=== PATIENT | female | born 1965 | race Caucasian/White ===

== ENCOUNTER → 2023-07-09 | Emergency (ER) | payer SELFPAY ==
[~2023-07-09] MED LIST: FAMOTIDINE 20 MG/2 ML VIAL IV ONE; KETOROLAC 30 MG/ML INJ ONE; ONDANSETRON 4 MG/2 ML VIAL ONE
--- OUTSIDE RECORDS SUMMARY | 2023-07-09 23:12 | XMS REPORT | Continuity of Care Document ---
Author Name Unknown Address [address] [facility] [address] [id number] [facility] Address [address] [facility] 1 [address] [place] [address] Care Team Providers Care Industrial Sales Engineer Name Role Phone Unavailable Unavailable Unavailable Payers Payer Name Policy Type Policy Number Effective Date Expirati on Date Source Self Pay P [id number] 2020 00:00:00 Allergies, Adverse Reactions, Alerts Allergy Name Allergy Type Status Severity Reaction(s) Onset Date Inactive Date Treating Clinician Comments Source morphine DA Active SV 07-15 00:00: 00 [facility] hydrocod one DA Active U 07-15 00:00: 00 [facility] No Known Allergie s DA Active U 07-14 00:00: 00 [facility] Encounters Start Date/Time End Date/Time Encounter Type Admission Type Attending Clinicians Care Facility Care Department Encounter ID Source 2021 05:05:58 Outpatient [facility] [id number] [facility] 2021-04-26 09:44:29 Outpatient [facility] [id number] [facility] 2019-08-01 17:27:00 2019-08-01 17:27:00 Emergency [id number] Results Test Description Test Time Test Comments Results Resul t Comments Source - CT HEAD/BRAIN W/O CONT 2018-07-27 20:35:00 FAX: Rocio Enriquez MD [phone] [place]: St: [facility] Name: FAM VALLECILLO [facility] : 1965 Age/S: 52/F [address] [facility] Unit: [id number] Loc: [place], [place]: [place] [id number] Acct: [id number] Dis Date: Status: [facility] ER PHONE #: [phone] Exam Date: 07/27/20182014 FAX #: [phone] Reason: HEADACHE EXAMS: CPT CODE: [id number] CT HEAD/BRAIN W/O CONT 28385 CT SCAN OF THE HEAD WITHOUT CONTRAST Location: N13 CLINICAL HISTORY: Headache R 51 TECHNIQUE: Helical CT was performed from the skull base to the vertex without IV contrast using 5mm slice thicknesses. Exam was performed within 24 hours of the patient's arrival to the facility. Coronal and sagittal images were reconstructed. Exam performed without IV contrast has limited sensitivity for detection of soft tissue mass or inflammation. This exam was performed according to our departmental dose optimization program, which includes automated exposure control, adjustment of the mA and/ or KV according to patient size and/or use of iterative reconstruction technique. DLP 850 mGy*cm FINDINGS: The visualized sinuses are clear. The visualized bony structures are normal. There is no evidence of epidural, subdural, or intraparenchymal hematoma. There is mild hypodensity in the deep white matter consistent with mild microvascular white matter change. There is no evidence of mass, mass effect, fluid collection, hemorrhage, or evolving infarction. IMPRESSION: No acute findings. Mild microvascular white matter change. at 2035 Reported and signed by: Lacey Triana M.D. CC: Rocio Enriquez MD Technologist: FREDDY DALEY Trnscrd Dt/Tm: 07/27/2018 (2034) Kadie Orig Print D/T: S: 07/27/2018 (2037 PAGE 1 Signed Report - CT ABD PELVIS W/CONT 2018-07-21 21:04:00 FAX: Flo Looney MD [phone] [place]: St: DEP Name: FAM VALLECILLO [facility] : 1965 Age/S: 52/F [address] [facility] Unit: [id number] Loc: [place], [place]: [place] [id number] Acct: [id number] Dis Date: Status: [facility] ER PHONE #: [phone] Exam Date: 07/21/20182043 FAX #: [phone] Reason: upper abd pain EXAMS: CPT CODE: [id number] CT ABD PELVIS W/CONT 96792 Exam: CT abdomen and pelvis with contrast. Location: D4. History: upper abd pain Technique: Enhanced spiral slices were taken from the domes of the diaphragm, through the pubic symphysis. Coronal reformations were performed. 100 cc of Isovue-300 were used. One or more of the following dose reduction techniques were used: Automated exposure control, adjustment of the mA and/or kV according to patient size, and/or utilization of iterative reconstruction technique. Findings: The liver is of normal, homogeneous density. No mass is seen. The intra-and extrahepatic biliary tree is normal. The hepatic and portal veins are patent. The gallbladder is unremarkable. No pericholecystic fluid or wall thickening is present. The pancreas is normal. The pancreatic duct is normal in caliber. The spleen and adrenal glands are normal in size and shape. The kidneys are unremarkable. No nephrolithiasis, perinephric fluid collections or hydronephrosis is seen. The large and small intestine are normal in caliber. The appendix is nonvisualized. No inflammatory change is identified. No lymphadenopathy or free fluid is found in the abdomen or the pelvis. The uterus has been removed. The pelvic structures are otherwise unremarkable. The lung bases are clear. No incidental findings are noted. Impression: 1. No acute abdominal findings. 2. Status post hysterectomy. 3. Otherwise unremarkable exam. PAGE 1 Signed Report (CONTINUED) FAX: Flo Looney MD [phone] [place]: St: DEP Name: FAM VALLECILLO [facility] : 1965 Age/S: 52/F [address] [facility] Unit: [id number] Loc: [place], [place]: [place] [id number] Acct: [id number] Dis Date: Status: DEP ER PHONE #: [phone] Exam Date: 07/21/20182043 FAX #: [phone] Reason: upper abd pain EXAMS: CPT CODE: [id number] CT ABD PELVIS W/CONT 74941 (Continued) at 210 Reported and signed by: Prashant Kelley M.D. CC: Flo Looney MD Technologist: VANDA TAYLOR Trnscrd Dt/Tm: 07/21/2018 (2103) MarilynFC Orig Print D/T: S: 07/21/2018 (2106 PAGE 2 Signed Report - XR CHEST 1 V 2018-07-21 19:33:00 FAX: Flo Looney MD [phone] [place]: St: DEP Name: FAM VALLECILLO [facility] : 1965 Age/S: 52/F [address] Unit #: [id number] Loc: [place], [place]: [place] [id number] Acct: [id number] Dis Date: Status: [facility] ER PHONE #: [phone] Exam Date: 07/21/20181905 FAX #: [phone] Reason: Abdominal Pain EXAMS: CPT CODE: [id number] XR CHEST 1 V 82276 R16 EXAM: - XR CHEST 1 V HISTORY: Abdominal Pain COMPARISON: None FINDINGS: The lungs are clear. No pleural effusion or pneumothorax. The cardiac silhouette is within normal limits. No acute osseous abnormalities. IMPRESSION: No acute cardiopulmonary disease. at 1933 Reported and signed by: Ishmael Benson M.D. CC: Flo Looney MD Technologist: MARIELENA SAHA Trnscrd Date/Time/By: 07/21/2018 (1932) : By: [email or web address] PAGE 1 Signed Report FAX: Flo Looney MD [phone] [place]: St: [facility] Name: FAM VALLECILLO [facility] : 1965 Age/S: 52/F [address] [employer] Unit #: [id number] Loc: [place], [place]: [place] [id number] Acct: [id number] Dis Date: Status: [facility] ER PHONE #: [phone] Exam Date: 07/21/20181905 FAX #: [phone] Reason: Abdominal Pain EXAMS: CPT CODE: [id number] XR CHEST 1 V 49586 (Continued) Orig Print D/T: S: 07/21/2018 (193) PAGE 2 Signed Report
[2023-07-09 23:42] LABS: Absolute Lymphocytes (CBC) 2.3 K/uL (0.7-4.9); Hematocrit 40.3 % (36.0-45.0); Lymphocytes % 22.8 % (15.3-44.8); MCV 90.2 fL (80-100); MPV 7.5 fL (7.6-11.3); Platelets 400 thou/uL (152-406); RBC Red Blood Cell Count 4.47 M/uL (3.86-4.86)
[2023-07-09 23:48] LABS: Specific Gravity 1.023 (1.005-1.030); Urine Bacteria None Seen /HPF (<20); Urine Bilirubin NEGATIVE (Negative); Urine Blood Negative (Negative); Urine Clarity Extremely Turbid (Clear); Urine Color Light-Yellow (Yellow); Urine Glucose NEGATIVE (Negative); Urine Mucus Slight /HPF (None Seen); Urine Protein NEGATIVE (Negative); Urine Urobilinogen 1+ (Normal); Urine pH 6.5 (5.0-7.0)
[2023-07-09 23:58] LABS: Albumin 3.2 g/dL (3.4-5.0); Bilirubin Total 0.5 mg/dL (0.2-1.0); Potassium 3.3 mEq/L (3.5-5.1)
[2023-07-10 00:36] LABS: SARS-CoV-2 Antigen Rapid Res Negative (Negative)
--- NOTE | 2023-07-10 02:20 | EDPHYS ---
Physician Documentation [facility] Name: Chula Pierre Age: 57 yrs Sex: Female : 1965 Arrival Date: 07/09/2023 Time: 23:07 Bed 8 Private MD: ED Physician Pedro Pablo Haynes HPI: 07/09 23:55 This 57 yrs old Female presents to ER via Ambulatory with complaints of Vomiting. ec2 23:55 Patient arrives today for evaluation of abdominal cramping with associated nausea and ec2 vomiting. Patient reports that she has been having several days of symptoms. Patient reports that she has had decreased p.o. intake. Patient reports no cough and cold symptoms, no urinary complaints. Patient reports no previous abdominal surgeries and no major medical problems.. Historical: - Allergies: 23:37 No Known Allergies; km8 - Home Meds: 23:37 None [Active]; km8 - PMHx: 23:37 None; km8 - PSHx: 23:37 None; km8 - Immunization history:: Client reports receiving the 2nd dose of the Covid vaccine, Flu vaccine status is unknown. - Social history:: Smoking status: Patient reports the use of cigarette tobacco products, smokes one-half pack cigarettes per day, Patient/guardian denies using alcohol, street drugs. ROS: 23:55 Constitutional: as per hpi ec2 Exam: 23:55 Constitutional: GEN: NAD Head: atraumatic Eyes: EOMI Ears: External ears are ec2 normal. CV: regular rate LUNGS: no respiratory distress ABD: non-distended, soft, nontender, no guarding, nonrigid SKIN: no evidence of rashes MSK: no evidence of trauma NEURO: moves all extremities equally Vital Signs: 23:22 BP 121 / 96; Pulse 73; Resp 16; Temp 97.5(IR); Pulse Ox 97% on R/A; Weight 54.88 kg km8 (R); Height 5 ft. 2 in. (R); Pain 10/10; 07/10 00:49 BP 133 / 91; Pulse 76; Resp 18 S; Pulse Ox 99% on R/A; ha1 01:00 BP 135 / 99; Pulse 70; Resp 16; Pulse Ox 98% on R/A; km8 01:30 BP 146 / 101; Pulse 77; Resp 17 S; Pulse Ox 98% on R/A; ha1 07/09 23:22 Body Mass Index 22.13 (54.88 kg, 157.48 cm) 8 07/09 23:22 Pain Scale: Adult km8 Apurva Coma Score: 07/09 23:39 Eye Response: spontaneous(4). Motor Response: obeys commands(6). Verbal Response: km8 oriented(5). Total: 15. MDM: 23:19 Patient medically screened. ec2 23:55 Data reviewed: vital signs, nurses notes. ED course: Patient arrives today due to ec2 concern for abdominal cramping with associated nausea and vomiting. Examination remarkable for well-appearing nontoxic individual with reassuring vital signs and reassuring abdominal examination. Will obtain lab work, treat the patient's symptoms and obtain a CT image. Currently considered process such as gastroenteritis, UTI, intra-abdominal infection.. 07/10 00:10 ED course: Metabolic profile with slight hypokalemia noted, lipase within normal ec2 ranges. . 01:58 ED course: Radiology report of the CT abdomen pelvis shows no acute intra-abdominal ec2 pathology. Will start the patient on Pepcid and have her follow-up with her primary care doctor. I instructed her she also needs to follow-up with GI. Return precautions given.. 07/09 23:21 Order name: CBC with Diff; Complete Time: 23:54 ec2 07/09 23:21 Order name: CMP; Complete Time: 00:10 ec2 07/09 23:21 Order name: Lipase; Complete Time: 00:10 ec2 07/09 23:21 Order name: Urinalysis w/ reflexes; Complete Time: 23:54 ec2 07/09 23:56 Order name: SARS RAPID; Complete Time: 00:46 ec2 07/09 23:56 Order name: Influenza Screen (a \T\ B); Complete Time: 00:46 ec2 07/09 23:22 Order name: CT Abd/Pelvis - IV Contrast Only ec2 07/09 23:21 Order name: IV Saline Lock; Complete Time: 23:40 ec2 07/09 23:21 Order name: Labs collected and sent; Complete Time: 23:40 ec2 Administered Medications: 07/09 23:32 Drug: Ketorolac IVP 15 mg IVP once Route: IVP; Site: right antecubital; 1 07/10 00:22 Follow up: Response: No adverse reaction [facility] 07/09 23:35 Drug: Ondansetron IVP 4 mg IVP once; over 2 minutes Route: IVP; Site: right antecubital;1 07/10 00:00 Follow up: Response: No adverse reaction; Marked relief of symptoms [facility] 00:22 Follow up: Response: No adverse reaction [facility] 07/09 23:44 Drug: NS 0.9% IV 1000 ml IV at 1 bolus Per protocol; 1000 mL bolus Route: IV; Rate: 1 km8 bolus; Site: right antecubital; 07/10 02:45 Follow up: Response: No adverse reaction; IV Status: Completed infusion; IV Intake: ha1 1000ml 00:22 Drug: Famotidine IVP 20 mg IVP once; dilute with 10 mL 0.9% NaCl; give over 2 minutes km8 Route: IVP; Site: right antecubital; 01:00 Follow up: Response: No adverse reaction; Nausea is decreased [facility] Disposition Summary: 07/10/23 02:19 Discharge Ordered Notes: Location: Home ec2 Condition: Stable ec2 Diagnosis - Upper abdominal pain, unspecified ec2 Followup: ec2 - With: Private Physician - When: - Reason: Recheck today's complaints Discharge Instructions: - Discharge Summary Sheet ec2 - Abdominal Pain, Adult ec2 Forms: - Medication Reconciliation Form ec2 - Thank You Letter ec2 - Antibiotic Education ec2 - Prescription Opioid Use ec2 - Patient Portal Instructions ec2 - Leadership Thank You Letter ec2 Prescriptions: - Pepcid 20 mg Oral Tablet - take 1 tablet ORAL route once daily; 20 tablet; Refills: 0, Product Selection ec2 Permitted Signatures: Dispatcher [employer] Jazmyn Dueñas RN RN 1 Pedro Pablo Haynes MD MD ec2 Kristina Zaidi RN RN 8
--- NOTE | 2023-07-10 02:20 | ER ---
Nurse's Notes [facility] Name: Chula Pierre Age: 57 yrs Sex: Female : 1965 Arrival Date: 07/09/2023 Time: 23:07 Bed 8 Private MD: Diagnosis: Upper abdominal pain, unspecified Presentation: 07/09 23:22 Chief complaint: Patient states: vomiting for 5 days; denies diarrhea or fever. km8 Coronavirus screen: Client denies travel out of the [place] in the last 14 days. Ebola Screen: No symptoms or risks identified at this time. Initial Sepsis Screen: Does the patient meet any 2 criteria? No. Patient's initial sepsis screen is negative. Does the patient have a suspected source of infection? No. Patient's initial sepsis screen is negative. Risk Assessment: Do you want to hurt yourself or someone else? Patient reports no desire to harm self or others. Onset of symptoms was July 05, 2023. 23:22 Method Of Arrival: Ambulatory [facility] 23:22 Acuity: YASMANI 3 km8 Triage Assessment: 23:22 General: Appears in no apparent distress. comfortable, Behavior is calm, cooperative, km8 appropriate for age. Pain: Complains of pain in abdomen Pain currently is 10 out of 10 on a pain scale. Also complains of nausea. 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 Neuro: Level of Consciousness is awake, alert, obeys commands, Oriented to person, place, time, situation. Cardiovascular: Denies chest pain, shortness of breath, Capillary refill < 3 seconds Patient's skin is warm and dry. Respiratory: Airway is patent Respiratory effort is even, unlabored, Respiratory pattern is regular, symmetrical. GI: Reports lower abdominal pain, upper abdominal pain, constipation, cramping, nausea, vomiting. : No signs and/or symptoms were reported regarding the genitourinary system. Derm: Skin is intact, Skin is dry, Skin is pink, warm \T\ dry. normal, Skin temperature is warm. Musculoskeletal: No signs and/or symptoms reported regarding the musculoskeletal system. Circulation, motion, and sensation intact. Range of motion: intact in all extremities. Historical: - Allergies: 23:37 No Known Allergies; km8 - Home Meds: 23:37 None [Active]; km8 - PMHx: 23:37 None; km8 - PSHx: 23:37 None; km8 - Immunization history:: Client reports receiving the 2nd dose of the Covid vaccine, Flu vaccine status is unknown. - Social history:: Smoking status: Patient reports the use of cigarette tobacco products, smokes one-half pack cigarettes per day, Patient/guardian denies using alcohol, street drugs. Screenin:39 [facility] ED Fall Risk Assessment (Adult) History of falling in the last 3 months, km8 including since admission No falls in past 3 months (0 pts) Confusion or Disorientation No (0 pts) Intoxicated or Sedated No (0 pts) Impaired Gait No (0 pts) Mobility Assist Device Used No (0 pt) Altered Elimination No (0 pt) Score/Fall Risk Level 0 - 2 = Low Risk Oriented to surroundings, Maintained a safe environment, Educated pt \T\ family on fall prevention, incl call for assistance when getting out of bed, Assessed \T\ reinforced patient's understanding of fall precautions. Abuse screen: Denies threats or abuse. Denies injuries from another. Nutritional screening: No deficits noted. Tuberculosis screening: No symptoms or risk factors identified. Assessment: 23:39 General: see triage assessment/notes. GI: Reports lower abdominal pain, upper abdominal km8 pain, nausea. 07/10 00:40 Reassessment: Patient appears in no apparent distress at this time. No changes from km8 previously documented assessment. Patient and/or family updated on plan of care and expected duration. Pain level reassessed. Patient is alert, oriented x 3, equal unlabored respirations, skin warm/dry/pink. 01:30 Reassessment: Patient and/or family updated on plan of care and expected duration. Pain ha1 level reassessed. Patient is alert, oriented x 3, equal unlabored respirations, skin warm/dry/pink. Patient states feeling better. Patient states symptoms have improved. Vital Signs: 07/09 23:22 BP 121 / 96; Pulse 73; Resp 16; Temp 97.5(IR); Pulse Ox 97% on R/A; Weight 54.88 kg km8 (R); Height 5 ft. 2 in. (R); Pain 10/10; 07/10 00:49 BP 133 / 91; Pulse 76; Resp 18 S; Pulse Ox 99% on R/A; ha1 01:00 BP 135 / 99; Pulse 70; Resp 16; Pulse Ox 98% on R/A; km8 01:30 BP 146 / 101; Pulse 77; Resp 17 S; Pulse Ox 98% on R/A; ha1 07/09 23:22 Body Mass Index 22.13 (54.88 kg, 157.48 cm) [facility] 07/09 23:22 Pain Scale: Adult km8 Apurva Coma Score: 07/09 23:39 Eye Response: spontaneous(4). Motor Response: obeys commands(6). Verbal Response: km8 oriented(5). Total: 15. ED Course: 23:10 Patient arrived in ED. ag3 23:14 Pedro Pablo Haynes MD is Attending Physician. ec2 23:22 Arm band placed on right wrist. km8 23:30 No provider procedures requiring assistance completed. Inserted saline lock: 20 gauge km8 in right antecubital area, using aseptic technique. Blood collected. Patient maintains SpO2 saturation greater than 95% on room air. 23:37 Triage completed. km8 23:39 Patient has correct armband on for positive identification. Bed in low position. Call km8 light in reach. Side rails up X 1. Pulse ox on. NIBP on. Door closed. Warm blanket given. 07/10 00:37 CT Abd/Pelvis - IV Contrast Only In Process Unspecified. EDMS 02:47 Provided Education on: d/c teaching. 8 02:48 IV discontinued, intact, bleeding controlled, No redness/swelling at site. Pressure km8 dressing applied. Administered Medications: 07/09 23:32 Drug: Ketorolac IVP 15 mg IVP once Route: IVP; Site: right antecubital; [facility] 07/10 00:22 Follow up: Response: No adverse reaction [facility] 07/09 23:35 Drug: Ondansetron IVP 4 mg IVP once; over 2 minutes Route: IVP; Site: right antecubital;[facility] 07/10 00:00 Follow up: Response: No adverse reaction; Marked relief of symptoms 00:22 Follow up: Response: No adverse reaction [facility] 07/09 23:44 Drug: NS 0.9% IV 1000 ml IV at 1 bolus Per protocol; 1000 mL bolus Route: IV; Rate: 1 km8 bolus; Site: right antecubital; 07/10 02:45 Follow up: Response: No adverse reaction; IV Status: Completed infusion; IV Intake: ha1 1000ml 00:22 Drug: Famotidine IVP 20 mg IVP once; dilute with 10 mL 0.9% NaCl; give over 2 minutes km8 Route: IVP; Site: right antecubital; 01:00 Follow up: Response: No adverse reaction; Nausea is decreased ha1 Medication: 07/09 23:39 VIS not applicable for this client. km8 Intake: 07/10 02:45 IV: 1000ml; Total: 1000ml. ha1 Outcome: 02:19 Discharge ordered by . ec2 02:48 Discharged to home ambulatory, with friend, km8 02:48 Condition: good 02:48 Discharge instructions given to patient, friend, Instructed on discharge instructions, follow up and referral plans. medication usage, Demonstrated understanding of instructions, follow-up care, medications, Prescriptions given X 1, 02:48 Patient left the ED. km8 Signatures: Dispatcher [employer] EDMS Monica Temple 3 Jazmyn Gandhi RN RN ha1 Pedro Pablo Haynes MD MD ec2 Kristina Zaidi RN RN km8 Corrections: (The following items were deleted from the chart) 07/09 23:37 23:37 General: km8 km8 23:41 23:39 Inserted saline lock: 20 gauge in right antecubital area, using aseptic km8 technique. Blood collected. km8 23:41 23:39 No provider procedures requiring assistance completed. km8 km8 23:41 23:39 Patient maintains SpO2 saturation greater than 95% on room air. km8 km8
--- NOTE | 2023-07-11 12:26 | RAD REPORT ---
EXAM DESCRIPTION: CT Abdomen and Pelvis With Intravenous Contrast CLINICAL HISTORY: The patient is 57 years old and is Female; ABD PAIN TECHNIQUE: Axial computed tomography images of the abdomen and pelvis with intravenous contrast. S agittal and coronal reformatted images were created and reviewed. This CT exam was performed using one or more of the following dose reduction techniques: automated exposure control, adjustment of t he mA and/or kV according to patient size, and/or use of iterative reconstruction technique. COMPARISON: No relevant prior studies available. FINDINGS: Lung bases: Unremarkable. No mass. No consolidation. Mediastinum: Small hiatal hernia. ABDOMEN: Liver: Mild hepatomegaly. Gallbladder and bile ducts: Unremarkable. No calcified stones. No ductal dilation. Pancreas: Unremarkable. No mass. No ductal dilation. Spleen: Unremarkable. No splenomegaly. Adrenals: Unremarkable. No mass. Kidneys and ureters: Unremarkable. No solid mass. No hydronephrosis. Stomach and bowel: Sigmoid diverticulosis. Scattered colonic diverticula. No obstruction. No mucosal thickening. PELVIS: Appendix: No findings to suggest acute appendicitis. Bladder: Unremarkable. Reproductive: Uterus is not seen. ABDOMEN and PELVIS: Intraperitoneal space: Unremarkable. No free air. No significant fluid collection. Bones/joints: No acute fracture. No dislocation. Soft tissues: Unremarkable. Vasculature: Scattered atherosclerotic vascular calcifications. No abdominal aortic aneurysm. Lymph nodes: Unremarkable. No enlarged lymph nodes. IMPRESSION: No acute finding in the abdomen/pelvis. 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 The interpreting radiologist is fully responsible for the content of the report.
== END ==
LOC: ER 23:07
DX: R10.10 Upper abdominal pain, unspecified (principal); R11.2 Nausea with vomiting, unspecified; F17.210 Nicotine dependence, cigarettes, uncomplicated; Z11.52 Encounter for screening for COVID-19
CPT/HCPCS: 96361; 85025; 81001; 36415; 83690; 80053; 87804 ×2; 74177; 96375; 96374; 99285; 87811; Q9967; J2405

== ENCOUNTER → 2023-09-04 | Emergency (ER) | payer OTHER ==
[~2023-09-04] MED LIST changes: +LIDOCAINE VISCOUS 2% 10ML ORAL SOLN ONE; +MAGNES/ALUMIN/SIMET 30ML UCUP ONE; +NA CHLORIDE 0.9% 1,000 ML ONE; +PANTOPRAZOLE 40 MG INJ ONE
--- OUTSIDE RECORDS SUMMARY | 2023-09-04 17:13 | XMS REPORT | Continuity of Care Document ---
Author Name Unknown Address [address] [facility] [place] [address] [facility] thconnect Address [address] [facility] [address] [place] [address] Care Team Providers Care Cross Tie Turner Name Role Phone PCP, PATIENT DOES NOT HAVE A Primary Care Physic FRANCIE Saldana Attending Clinician Francie Duarte Attending Clinician [phone] ELSA MIXON Admitting Clinician Unavailable Payers Payer Name Policy Type Policy Number Effective Date Expirati on Date Source Self Pay P [id number] 2020 00:00:00 MEDICAID [facility] [id number] 2021 00:00:00 Problems Condition Name Condition Details Condition Category Status Onset Date Resolution Date Last Treatment Date Treating Clinician Comments Source Obesity (BMI 30-39.9) Obesity (BMI 30-39.9) Disease Active 02-01 00:00: 00 [facility] Cellulitis Cellulitis Disease Active 02-01 00:00: 00 [facility] Allergies, Adverse Reactions, Alerts Allergy Name Allergy Type Status Severity Reaction(s) Onset Date Inactive Date Treating Clinician Comments Source hydrocod one DA Active U - 00:00: 00 [facility] morphine DA Active SV 07-15 00:00: 00 [facility] hydrocod one DA Active U 07-15 00:00: 00 [facility] No Known Allergie s DA Active U 07-14 00:00: 00 [facility] HYDROCOD ONE DRUG INGREDI Active ITCHING 2017-07 00:00: 00 [facility] Hydrocod one Propensi ty to adverse reaction s Active Itching 2017-07 00:00: 00 [facility] Social History Social Habit Start Date Stop Date Quantity Comments [facility] of tobacco use Cigarette Smoker [facility] Alcohol intake 2023-07-07 00:00:00 2023-07-07 00:00:00 Current non-drinker of alcohol (finding) [facility] History of Social function 2023-07-07 00:00:00 2023-07-07 00:00:00 [facility] Cigarettes smoked current (pack per day) - Reported 2017-02-01 00:00:00 2017-02-01 00:00:00 [facility] Cigarette pack-years 2017-02-01 00:00:00 2017-02-01 00:00:00 [facility] Tobacco use and exposure 2017-02-01 00:00:00 2017-02-01 00:00:00 Smokeless tobacco non-user [facility] Sex Assigned At 1965 00:00:00 1965 00:00:00 [facility] Smoking Status Start Date Stop Date Source Smokes tobacco daily 2017-02-01 00:00:00 [facility] Medications Ordered Medication Name Filled Medication Name Start Date Stop Date Current Medication? Ordering Clinician Indication Dosage Frequency Signature (SIG) Comments Components Source iopamidol (ISOVUE 370-500 mL) injection 100 mL 2022-07 10:45: 00 07-07 10:45 :00 No [id number] 100mL 100 mL, Intravenou s, ONCE, 1 dose, On Airam 07/07/23 at 0445, Routine [facility] ondansetron (ZOFRAN (PF)) injection 4 mg 2022-07 09:45: 00 07-07 10:10 :00 No 4mg 4 mg, Slow IV Push, ONCE, 1 dose, On Airam 07/07/23 at 0345, [facility] NaCl 0.9% (NS) bolus infusion 1,000 mL 2022-07 08:45: 00 07-07 10:44 :00 No 1000mL at 999 mL/hr, 1,000 mL, IV Infusion, ONCE, 1 dose, On Airam 07/07/23 at 0245, [facility] ondansetron (ZOFRAN (PF)) injection 4 mg 2022-07 08:45: 00 07-07 08:18 :00 No 4mg 4 mg, Slow IV Push, ONCE, 1 dose, On Airam 07/07/23 at 0245, [facility] pantoprazol e (PROTONIX) 40 mg EC tablet 2022-07 00:00: 00 Yes [id number] 40mg Take 1 tablet by mouth in the morning. [facility] dicyclomine 20 mg tablet 2022-07 00:00: 00 Yes [id number] 20mg Take 1 tablet by mouth every 6 (six) hours as needed for Abdominal pain. [facility] ondansetron (ZOFRAN) 4 mg tablet 2022-07 00:00: 00 Yes [id number] 4mg Take 1 tablet by mouth every 8 (eight) hours as needed for Nausea and Vomiting (N/V). [facility] traMADOL (ULTRAM) 50 mg tablet 08-20 00:00: 00 Yes [id number] 50mg Take 1 tablet by mouth every 6 (six) hours as needed for Pain (scale 7-10). [facility] butalbital- acetaminoph en-caff 50-325-40 mg tablet 02-08 00:00: 00 Yes 1{tbl} Take 1 tablet by mouth every 6 (six) hours as needed (GERBER). [facility] acetaminoph en 325 mg tablet 02-08 00:00: 00 Yes 650mg Take 2 tablets by mouth every 6 (six) hours as needed for Pain (scale 1-3). [facility] simethicone 80 mg chewable tablet 02-08 00:00: 00 Yes 80mg Take 1 tablet by mouth after meals and at bedtime. [facility] pantoprazol e 20 mg EC tablet 02-08 00:00: 00 Yes 20mg Take 1 tablet by mouth daily. [facility] acyclovir 200 mg capsule 01-28 00:00: 00 Yes 800mg Take 4 capsules by mouth 5 (five) times daily. [facility] Vital Signs Vital Name Observation Time Observation Value Comments S ource Heart rate 2023-07-07 10:30:00 79 /min [facility] Oxygen saturation in Arterial blood by Pulse oximetry 2023-07-07 10:30:00 99 /min [facility] Systolic blood pressure 2023-07-07 10:10:00 117 mm[Hg] [facility] Diastolic blood pressure 2023-07-07 10:10:00 89 mm[Hg] [facility] Respiratory rate 2023-07-07 10:10:00 20 /min [facility] Body temperature 2023-07-07 07:47:00 37.28 Tami [facility] Body height 2023-07-07 07:47:00 157.5 cm [facility] Body weight 2023-07-07 07:47:00 54.885 kg [facility] BMI 2023-07-07 07:47:00 22.13 kg/m2 [facility] Procedures Procedure Date / Time Performed Performing Clinicia n Source CT ABDOMEN PELVIS W CONTRAST 2023-07-07 09:59:51 Elsa Mixon [facility] LIPASE 2023-07-07 08:18:00 Francie Mcadams [facility] TROPONIN I 2023-07-07 08:18:00 Elsa Mixon [facility] COMP. METABOLIC PANEL ([id number]) 2023-07-07 08:18:00 Celestine [facility] CBC WITH DIFF 2023-07-07 08:18:00 Celestine [facility] NOTICE OF PRIVACY PRACTICES 2023-07-07 07:36:51 Doctor Unassigned, [place] [facility] CONSENT/REFUSAL FOR DIAGNOSIS AND TREATMENT 2023-07-07 07:27:55 Doctor Unassigned, [place] [facility] Encounters Start Date/Time End Date/Time Encounter Type Admission Type Attending [facility] Care Facility Care Department Encounter ID Source 2021 05:05:[address] [facility] [id number] [facility] 2021-04-26 09:44:[address] [facility] [id number] [facility] 2023-07-07 02:02:00 2023-07-07 05:12:00 Emergency [facility] ERT [id number] [facility] 2023-07-07 02:02:00 2023-07-07 05:12:00 Emergency [place], [facility] [id number] 350.1.13.10 4.2.7.2.[id number] [facility] Results Test Description Test Time Test Comments Results Resul t Comments Source CT ABDOMEN PELVIS W CONTRAST 2023-06-11 8 10:22:44 ORDERING PHYSICIAN: ELSA MIXON CLINICAL HISTORY: Abdominal pain, acute COMPARISON: None available. TECHNIQUE: Helical CT images of the abdomen and pelvis obtained with IVcontrast. CT scan performed according to ALARA (As low as reasonablyachievabl e) principles. FINDINGS: Heart size is normal. Liver and spleen are unremarkable. The gallbladder isunremarkable. The pancreas, and kidneys are unremarkable. There is nohydronephrosis. Adrenal gland thickening is seen bilaterally. Bladder isunremarkable. Fat-containing left inguinal hernia is identified. Patientstatus post hysterectomy. Diverticula are identified in the colon. There isno CT evidence for diverticulitis. Appendix is not identified. No secondarysigns of appendicitis. The bones are unremarkable[facility]-07 08:48:06* Test Item Value Reference Range Interpretation Comme nts NA (test code = 6635713523) 139 mmol/L 135-145 K (test code = 5461140148) 4.0 mmol/L 3.5-5.0 CL (test code = 0896884624) 105 mmol/L 98-108 CO2 TOTAL (test code = 0925444160) 25 mmol/L 23-31 AGAP (test code = 9164975242) 9 2-16 BUN (test code = 0580433359) 16 mg/dL 7-23 GLUCOSE (test code = 6001307995) 128 mg/dL 70-110 H CREATININE (test code = 8617023490) 0.60 mg/dL 0.50-1.04 TOTAL BILI (test code = 9082084143) 1.0 mg/dL 0.1-1.1 CALCIUM (test code = 9725651992) 9.5 mg/dL 8.6-10.6 T PROTEIN (test code = 2058265872) 8.3 g/dL 6.3-8.2 H ALBUMIN (test code = 4823771276) 4.7 g/dL 3.5-5.0 ALK PHOS (test code = 9051079862) 99 U/L 34-122 ALTv (test code = 1742-6) 19 U/L 5-35 AST(SGOT) (test code = 6544652139) 40 U/L 13-40 eGFR (test code = 95949-4) 104.8 mL/min/1.73m2 CKD-EPI eGFR (2020). Assuming creatinine has been stable day-to-day for at least three months, the eGFR indicates Category G1 (>= 90 mL/min/1.73 m2) Lab Interpretation (test code = 05316-3) [facility]47:46* Test Item Value Reference Range Interpretation Comme nts LIPASE (test code = 7995766168) 58 U/L 0-220 Lab Interpretation (test cod e = 03873-3) Normal [facility] WITH [id number] 08:33:27* Test Item Value Reference Range Interpretation Comme nts WBC (test code = 6690-2) 9.95 See_Comment [Automated messa ge] The system which generated this result transmitted reference range: 4.30 - 11.10 10*3/?L. The reference range was not used to interpret this result as normal/abnormal. RBC (test code = 789-8) 5.20 See_Comment [Automated messa ge] The system which generated this result transmitted reference range: 3.93 - 5.25 10*6/?L. The reference range was not used to interpret this result as normal/abnormal. HGB (test code = 718-7) 16.0 g/dL 11.6-15.0 H HCT (test code = 4544-3) 47.4 % 35.7-45.2 H MCV (test code = 787-2) 91.2 fL 80.6-95.5 MCH (test code = 785-6) 30.8 pg 25.9-32.8 MCHC (test code = 786-4) 33.8 g/dL 31.6-35.1 RDW-SD (test code = 78225-2) 44.3 fL 39.0-49.9 RDW-CV (test code = 788-0) 13.2 % 12.0-15.5 PLT (test code = 777-3) 432 See_Comment H [Automated messa ge] The system which generated this result transmitted reference range: 166 - 358 10*3/?L. The reference range was not used to interpret this result as normal/abnormal. MPV (test code = 81398-8) 9.6 fL 9.5-12.9 NRBC/100 WBC (test code = 1418140256) 0.0 See_Comment [Automated [employer] ssage] The system which generated this result transmitted reference range: 0.0 - 10.0 /100 WBCs. The reference range was not used to interpret this result as normal/abnormal. NRBC x10^3 (test code = 2950321019) See_Comment [Automated messa ge] The system which generated this result transmitted reference range: 10*3/?L. The reference range was not used to interpret this result as normal/abnormal. GRAN MAT (NEUT) % (test code = 770-8) 68.2 % IMM GRAN % (test code = 1545322729) 0.20 % LYMPH % (test code = 736-9) 23.7 % MONO % (test code = 5905-5) 6.8 % EOS % (test code = 713-8) 0.5 % BASO % (test code = 706-2) 0.6 % GRAN MAT x10^3(ANC) (test code = 4149213640) 6.78 10*3/uL 1.88-7.09 IMM GRAN x10^3 (test code = 7707649928) 0.00-0.06 LYMPH x10^3 (test code = 731-0) 2.36 10*3/uL 1.32-3.29 MONO x10^3 (test code = 742-7) 0.68 10*3/uL 0.33-0.92 EOS x10^3 (test code = 711-2) 0.05 10*3/uL 0.03-0.39 BASO x10^3 (test code = 704-7) 0.06 10*3/uL 0.01-0.07 Lab Interpretation (test code = 00749-2) Abnormal [facility]- CT HEAD/BRAIN W/O [id number] 20:35:00 FAX: Rocio Enriquez MD [phone] [place]: St: DEP Name: FAM VALLECILLO [facility] : 1965 Age/S: 52/F [address] Unit: [id number] Loc: [place], [place]: [place] [id number] Acct: [id number] Dis Date: Status: [facility] ER PHONE #: [phone] Exam Date: 07/27/20182014 FAX #: [phone] Reason: HEADACHE EXAMS: CPT CODE: [id number] CT HEAD/BRAIN W/O CONT 37934 CT SCAN OF THEHEAD WITHOUT CONTRAST Location: N13 CLINICAL HISTORY: Headache [...] the mA and/ or KV according to patientsize and/or use of iterative reconstruction technique. DLP 850 mGy*cm FINDINGS: The visualized sinuses are clear. The visualized bony structures are normal. There is no evidence of epidural, subdural, or intraparenchymal hematoma. There is mild hypodensity in the deep white matter consistent with m ild microvascular white matter change. There is no evidence of mass, mass effect, fluid collection,hemorrhage, or evolving infarction. IMPRESSION: No acute findings. Mild microvascular white matter change. at 2034 Reported and signed by: Lacey Triana M.D. CC: Rocio Enriquez MD Technologist: FREDDY DALEY Trnscrd Dt/Tm: 07/27/2018 (2034) AuraT Orig Print D/T: S: 07/27/2018 (2037 PAGE 1 Signed Report- CT HEAD/BRAIN W/O [id number] 20:35:00FAX: Rocio Enriquez MD [phone] [place]: St: REG Name: FAM VALLECILLO [facility] : 1965 Age/S:52/F [address] [facility] [facility] Unit: [id number] Loc: [place] [employer] Phys: Rocio Enriquez WMD [id number] Acct: [id number] Dis Date: Status: REG ER PHONE #: [phone] Exam Date: 07/27/20182014 FAX #: [phone] Reason: HEADACHE EXAMS: CPT CODE: [id number] CT HEAD/BRAIN W/O CONT 66923 CTSCAN OF THE HEAD WITHOUT CONTRAST Location: N13 CLINICAL HISTORY: Headache R 51 TECHNIQUE: HelicalCT was performed from the skull base to the vertex without IV contrast using 5mm slice thicknesses.Exam was performed within 24 hours of the [...] evolving infarction. IMPRESSION: No acute findings. Mild microvascularwhite matter change. at 2034 Reported and signed by: Lacey Triana M.D. CC: Rocio Enriquez MD Technologist: FREDDY DALEY Trnscrd Dt/Tm: 07/27/2018 (2034) Kadie Orig Print D/T: S: 07/27/2018 (2037 PAGE 1 Signed ReportCOMPREHENSIVE METABOLIC [id number] 20:29:00* Test Item Value Reference Range Interpretation Comme nts SODIUM (test code = NA) 142 mmol/l 134.0-147.0 N POTASSIUM (test code = K) 4.3 mmol/L 3.6-5.2 N CHLORIDE (test code = CL) 105 mmol/l 98.0-107.0 N CARBON DIOXIDE (test code = CO2) 29.1 mmol/l 21.0-33.0 N ANION GAP (test code = GAP) 12.2 0-20 N GLUCOSE (test code = GLU) 101 mg/dl 70.0-110.0 N BLOOD UREA NITROGEN (test co de = BUN) 21 mg/dl 7.0-18.0 H CREATININE (test code = CREAT) 0.95 mg/dL 0.60-1.30 N GFR NON BLACK (test code = GFRNONBLACK) 65 mL/min 90-95 L GFR BLACK (test code = GFRBLACK) 79 mL/min 109-115 L TOTAL PROTEIN (test code = PROT) 7.5 gm/dL 6.4-8.2 N ALBUMIN (test code = ALB) 3.5 gm/dl 3.2-4.7 N CALCIUM (test code = CA) 9.2 mg/dl 8.0-10.5 N BILIRUBIN TOTAL (test code = BILT) 0.1 mg/dl 0.0-1.0 N SGOT/AST (test code = AST) 17 Units/L 15.0-37.0 N SGPT/ALT (test code = ALT) 27 Units/L 12.0-78.0 N ALKALINE PHOSPHATASE TOTAL ( test code = ALKP) 112 Units/L 50.0-136.0 N PROTHROMBIN [id number] 20:27:00* Test Item Value Reference Range Interpretation Comme nts PROTHROMBIN TIME PATIENT (test code = PTP) 11.7 SECONDS 9.9-12.8 N INTERNATIONAL NORMAL RATIO (test code = INR) 1.0 0.89-1.14 N THE INR IS TO BE USED ONLY FOR MONITORING ORAL ANTICOAGULANTTHERAPY. THE FOLLOWING ARE SUGGESTED RANGES FROM THEAMERICAN COLLEGE OF CHEST PHYSICIANS:INDICATION INR VALUEPROPHYLAXIS OF VENOUS THROMBOSIS (ORTHOPEDIC SURGERY) 2.0 - 3.0PROPHYLAXIS OF VENOUS THROMBOSIS (OTHER THAN HIGH-RISK SURGERY) 2.0 - 3.0TREATMENT OF DEEP VEIN THROMBOSIS OR PULMONARY EMBOLISM 2.0 - 3.0PREVENTION OF SYSTEMIC EMBOLISM TISSUE HEART VALVES 2.0 - 3.0 ACUTE MYOCARDIAL INFARCTION (TO PREVENT SYSTEMIC EMBOLISM) 2.0 - 3.0 ACUTE MYOCARDIAL INFARCTION (TO PREVENT RECURRENT INFARCT) 2.5 - 3.0 VALVULAR HEART DISEASE 2.0 - 3.0 ATRIAL FIBRILATION 2.0 - 3.0BILEAFLET MECHANICAL VALVE IN AORTIC POSITION 2.0 - 3.0MECHANICAL PROSTHETIC VALVES (HIGH RISK) 2.5 - 3.5PRESENCE OF LUPUS ANTICOAGULANT OR ANTIPHOSPHOLIPID ANTIBODIES 2.5 - 3.5 THROMBOPLASTIN TIME [id number] 20:27:00* Test Item Value Reference Range Interpretation Comme nts THROMBOPLASTIN TIME PARTIAL (test code = PTT) 31.60 SECONDS 25.86-36.07 [facility] Therapeutic Range - APTT of 55.8-85.4 secondscorrelates with plasma heparin concentration of 0.2-0.4 u/mL New range effective - 09/05/2016 COMPREHENSIVE METABOLIC [id number] 20:22:00* Test Item Value Reference Range Interpretation Comme nts SODIUM (test code = NA) 142 mmol/l 134.0-147.0 N POTASSIUM (test code = K) 4.3 mmol/L 3.6-5.2 N CHLORIDE (test code = CL) 105 mmol/l 98.0-107.0 N CARBON DIOXIDE (test code = CO2) 29.1 mmol/l 21.0-33.0 N ANION GAP (test code = GAP) 12.2 0-20 N GLUCOSE (test code = GLU) mg/dl 70.0-110.0 BLOOD UREA NITROGEN (test co de = BUN) mg/dl 7.0-18.0 CREATININE (test code = CREAT) mg/dL 0.60-1.30 GFR NON BLACK (test code = GFRNONBLACK) mL/min 90-95 GFR BLACK (test code = GFRBLACK) mL/min 109-115 TOTAL PROTEIN (test code = PROT) gm/dL 6.4-8.2 ALBUMIN (test code = ALB) gm/dl 3.2-4.7 CALCIUM (test code = CA) mg/dl 8.0-10.5 BILIRUBIN TOTAL (test code = BILT) mg/dl 0.0-1.0 SGOT/AST (test code = AST) Units/L 15.0-37.0 SGPT/ALT (test code = ALT) Units/L 12.0-78.0 ALKALINE PHOSPHATASE TOTAL ( test code = ALKP) Units/L 50.0-136.0 CBC W/AUTO [id number] 20:14:00* Test Item Value Reference Range Interpretation Comme nts WHITE BLOOD CELL (test code = WBC) 13.4 K/mm3 4.5-11.0 H RED BLOOD CELL (test code = RBC) 4.60 M/mm3 3.80-5.20 N HEMOGLOBIN (test code = HGB) 13.0 gm/dL 12.0-16.0 N HEMATOCRIT (test code = HCT) 40.1 % 36.0-48.0 N MEAN CELL VOLUME (test code = MCV) 87.2 UM3 82.0-99.0 N MEAN CELL HGB (test code = MCH) 28.3 UUG 25.5-32.5 N MEAN CELL HGB CONCETRATION ( test code = MCHC) 32.4 gm/dL 29.0-35.5 N RED CELL DISTRIBUTION WIDTH (test code = RDW) 13.7 % 11.5-15.0 N PLATELET COUNT (test code = PLT) 519 K/mm3 150-400 H MEAN PLATELET VOLUME (test c ode = MPV) 9.2 fl 7.4-10.4 N NEUTROPHIL % (test code = NT%) 61.4 % 49.0-76.0 N LYMPHOCYTE % (test code = LY%) 29.7 % 23.0-38.0 N MONOCYTE % (test code = MO%) 6.0 % 1.0-10.0 N EOSINOPHIL % (test code = EO%) 1.7 % 1.0-5.0 N BASOPHIL % (test code = BA%) 0.8 % 0.0-1.0 N NEUTROPHIL # (test code = NT#) 8.2 K/mm3 2.4-6.3 H LYMPHOCYTE # (test code = LY#) 4.0 K/mm3 1.2-4.0 N MONOCYTE # (test code = MO#) 0.8 K/mm3 0.0-0.6 H EOSINOPHIL # (test code = EO#) 0.2 K/MM3 0.0-0.7 N BASOPHIL # (test code = BA#) 0.1 K/mm3 0.0-0.2 N - CT ABD PELVIS [id number] 21:04:00FAX: Flo Looney MD [phone] [place]: St: [facility] Name: FAM VALLECILLO [facility] : 1965 Age/S: 52/F [address] [facility] Unit: [id number] Loc: [place], [place] Phys: Flo Looney [place] [id number]: [id number] Dis Date: Status: [facility] ER PHONE #: [phone] Exam Date: 07/21/20182043 FAX #: [phone] Reason: upper abd pain EXAMS: CPT CODE: [id number] CT ABD PELVIS W/CONT 33016 Exam: CT abdomen and pelvis with contrast. Location: D4. History: upper abd pain Technique: Enhanced spiral slices were taken from the domes of the diaphragm, through the pubic symphysis. Coronal reformationswere performed. 100 cc of Isovue-300 were used. One or more of the following dose reduction techniques were used: Automated exposure control, adjustment of the mA and/or kV according to patient size,and/or utilization of iterative reconstruction technique. Findings: The liver is of normal, homogeneous density. No mass is seen. The intra-and extrahepatic biliary tree is normal. The hepatic and portal veins are patent. The gallbladder is unremarkable. No pericholecystic fluid or wall thickening is present. The pancreas is normal. The pancreatic duct is normal in caliber. The spleen and adrenalglands are normal in size and shape. The [...] Signed Report (CONTINUED) FAX: Flo Looney MD [phone] [place]: St: [facility]: [facility] 1965[facility]/S: /[address] Unit: [id number] Loc: [place], [place]: [place] [id number] Acct: [id number] Dis Date: Status: DEP ER PHONE #: [phone] Exam Date: 2043 FAX #: [phone] Reason: upper abd pain EXAMS: CPT CODE: [id number] CT ABD PELVIS W/CONT 52649 (Continued) at 2104 Reported and signed by: Prashant Kelley M.D. CC: Flo Looney MD Technologist: VANDA TAYLOR Trnscrd Dt/Tm: 07/21/2018 (2103) [email or web address] Orig Print D/T: S: 07/21/2018 (7 PAGE 2 Signed Report- XR CHEST 1 [id number] 19:33:00FAX: Flo Looney MD [phone] [place]: St: DEP Name: FAM VALLECILLO [facility] : 1965 Age/S: 52/[address] Unit #: [id number] Loc: [place], [place]: [place] [address] Acct: [id number] Dis Date: Status: [facility] ER PHONE #: [phone] Exam Date: 07/21/20181905 FAX #: [phone] Reason: Abdominal Pain EXAMS: CPT CODE: [id number] XR CHEST 1 V 91517 R16 EXAM: -XR CHEST 1 V HISTORY: Abdominal Pain COMPARISON: [...] 1 Signed Report FAX: Flo Looney MD [phone] [place]: St: [facility] Name: FAM VALLECILLO [facility] : 1965 Age/S: 52/F [address] Unit #: [id number] Loc: [place], [place]: [place] [address] Acct: [id number] Dis Date: Status: [facility] ER PHONE #: [phone] Exam Date: 07/21/20181905 FAX #: [phone] Reason: Abdominal Pain EXAMS: CPT CODE: [id number] XR CHEST 1 V 47166 (Continued) Orig Print D/T: S: 07/21/2018 (1935) PAGE 2 Signed Report Notes Date/Time Note Provider Source 2023-07-07 04:59:25 F6YdFAbosfKE9ErJZn/fitqkZH5Sg0UyoULhRVS WDKpRV0+UjYJZdswlXt39EuZn7836-72-54E81: 59:25 Pt given printed and verbal discharge instructions regarding N/V/epigastric pain, Prescriptions to pt's pharmacyPt verbalized understanding of instructions,pt encouraged to follow up with pcpAdvised to seek medical attention for new/prolonged/worsening of symptoms,No adverse reaction to meds given in ER noted upon dischargePIV d'cd, dressing to site, catheter in tact.Awake, alert oriented, resp reg unlabored, skin w/d, pt leaving in no apparent distress, 68556-0Trcknokbi department WczaAP8041-51-83H57:11:57Emergency department NoteTXT1.2.840.504602.1.13.104.2.7.2.72 7879|[id number] for patient tsyn47861-5KizdURXKMQJBAKZYmgrwpqcc C-CDA narrative [id number] R Shehadeh RN[address]XrcbEstkulstqXbuamqlzyKJUI8113568391LAB QKRIRHZKQKGPCIHOLBQ7743-66-76M21:11:571 .2.840.747988.1.72.3.15|1.2.840.978403. 1.13.104.2.7.2.727879_[id number] Laura Patiño RN [facility] 2023-07-07 01:41:19 AbCKCTgWEOz+gAF9unNyr2jzQYfoK7N+7aM5q2p EeK6z/zhO5PTuItok3++qwI3I5027-40-00D10: 41:19 Pt arrives ambulatory to ED reporting that for about 3 days she has been unable to hold anything down. She says that she has been vomiting everything she tries to drink or eat. She has become concerned so she came in to be evaled. 58362-4Nppgtkchm department Triage klfgPW1812-01-24N33:56:53[facility] Triage noteTXT1.2.840.914807.1.13.104.2.7.2.72 7879|[id number] for patient mvhb51240-5Zetolhtfe department NoteLNNARRATIVEFormatted C-CDA narrative [id number] L Williams RN[address] Tp[id number] KIZGNXDDUBRHRHZFYYJ1298-86-70L78:56:531 .2.840.133785.1.72.3.15|1.2.840.737112. 1.13.104.2.7.2.727879_[id number] Laura Flaherty RN [facility] 2018-07-27 19:40:00 [id number] ngd4O2kjSdH9gW9BvwT5SZkQ95Q+wmQSVivoAN6 Nd643931-04-14X26:40:00 [facility] ([facility]-COMM[facility]ITY HOSPITALEMERGENCY PROVIDER REPORTREPORT#:[id number] REPORT STATUS: SignedDATE:07/27/18 TIME: 1939 PATIENT: FAM VALLECILLO UNIT #: [id number]#: [id number] ROOM/BED:AGE: 52 SEX: F PCP PHYS: No Primary or Family PhysicianSERVICE AUTHOR: Rocio Enriquez MD * ALL edits or amendments must be made on the electronic/computer document * HPI-Headache GeneralConfirmed Patient YesInitial Greet Date/Time 07/27/181920 PresentationChief Complaint HeadacheHx Obtained From PatientSudden in Onset? YesOnset Occurred Today (AM)Symptom Duration Since onsetProgression since Onset UnchangedLocation GeneralizedSeverity: Onset ModerateSeverity: Current ModerateAssociated withDenies: Fever. 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 GERBER was gradual onset, gradually worsening, not worst headache of her life. Pt reports the long-term she resides at does not let her take OTC meds without first being seen by a doctor, so she was advised her to seek help in the ED for intervention. Pt states her GERBER's don't usually last this long, so she was concerned. Denies fever, chills, N/V or any other acute symptoms. Pt also states she does not have money for Tylenol or ibuprofen. Portions of this section were scribed by Kristine Hughes on 07/27/18 at 1952 Risk-Headache Risk Stratification)( Subarachnoid Hemorrhage Risk factors reviewed)( IC Mass Lesion Risk factors reviewed Portions of this section were scribed by Kristine Hughes on 07/27/18 at 1952 Review of Systems ROS StatementsAll systems rev neg except as marked. Focused Review of SystemsConstitutionalDenies: Chills, Fever, Lethargy. EyesDenies: Diplopia, Eye pain bilat, Redness bilat, Visual loss bilat. Ears/Nose/ThroatDenies: Earache bilat, Nasal congestion, Sore throat. GIDenies: Abdominal pain, Diarrhea, Nausea, Vomiting. MusculoskeletalDenies: Back pain, Extremity pain. SkinDenies: Diaphoresis, Rash. NeurologicReports: Headache. Denies: Change LOC, Dizziness, Focal weakness, Generalized weakness, Lightheaded, Syncope. PsychiatricDenies: Anxiety, Depression. Additional Review of SystemsRespiratoryDenies: Shortness of breath, Wheezing. CardiovascularDenies: Chest pain, Edema. HematologicDenies: Bleeding, Bruising. Portions of this section were scribed by Kristine Hughes on 07/27/18 at 1953 Past Medical History - AdultStated Complaint PT STATES " I HAVE A BAD HEADACHE"AllergiesCoded Allergies:hydrocodone (UNKNOWN 07/21/18) Review of Nursing Notes Rev avail, and agreePt reports no significant: Past surgical historyAdditional Medical HistoryDeafAlcohol Use Denies EtOH useSmoking status for patients 13 years old or older: Current every day smoker Portions of this section were scribed by Kristine Hughes on 07/27/18 at 1953 Physical Exam Vital SignsVital SignsFirst Documented: Result Date Time Pulse Ox 100 07/27 1918 B/P 127/74 07/27 1918 B/P Mean 91 07/27 1918 O2 Delivery Room air 07/27 1918 Temp 37.1 07/27 1918 Pulse 99 07/27 1918 Resp 18 07/27 1918 Last Documented: Result Date Time Pulse Ox 98 07/27 2254 B/P 113/61 07/27 2254 B/P Mean 78 07/27 2254 O2 Delivery Oxymizer 07/27 2254 Temp 36.8 07/27 2254 Pulse 88 07/27 2254 Resp 20 07/27 2254 Review of Vital Signs Reviewed Focused PEGeneral/Const General/Const Awake, Alert, No acute distress, Well developed, Well nourished, Cooperative, Not toxic appearingMS Head Head Atraumatic, NormocephalicEyes Eyes PERRL, EOMI, No nystagmus, No photophobia, Conjunctiva NL, Fundi NLEars/Nose/Throat Ears/Nose/Throat Airway patent, Mucous membranes moist, Pharynx NLMS Neck Neck Supple, No meningismus, Full range of motion, No swelling, Non-tenderResp/Chest Respiratory/Chest Breath sounds NL, Breath sounds = bilat, No respiratory distress, No rales, No rhonchi, No wheezingCardiovascular Cardiovascular Heart rate NL, Regular rhythm, Heart sounds NLAbdomen/GI Abdomen/GI Soft, Non-tender, No guardingSkin Skin Color NL, No rash, Warm, Dry, Intact, No swellingNeurologic Neurologic Oriented X3, Speech NL, No motor deficits, No sensory deficits, CNII - XII intact, Cerebellar NLPsychiatric Psychiatric Affect NL, Mood NL Portions of this section were scribed by Kristine Hughes on 07/27/18 at 1953 Interpretation Diagnostics Lab Results InterpretationResultsLaboratory Tests 07/27/18 2005:[Embedded Image Not Available]Laboratory Tests: 07/27 2004 Chemistry Sodium (134.0 - 147.0 mmol/l) 142 Potassium (3.6 - 5.2 mmol/L) 4.3 Chloride (98.0 - 107.0 mmol/l) 105 Carbon Dioxide (21.0 - 33.0 mmol/l) 29.1 Anion Gap (0 - 20) 12.2 BUN (7.0 - 18.0 mg/dl) 21 H Creatinine (0.60 - 1.30 mg/dL) 0.95 Est GFR ( Amer) (109 - 115 mL/min) 79 L Est GFR (Non-Af Amer) (90 - 95 mL/min) 65 L Glucose (70.0 - 110.0 mg/dl) 101 Calcium (8.0 - 10.5 mg/dl) 9.2 Total Bilirubin (0.0 - 1.0 mg/dl) 0.1 AST (15.0 - 37.0 Units/L) 17 ALT (12.0 - 78.0 Units/L) 27 Total Alk Phosphatase (50.0 - 136.0 Units/L) 112 Total Protein (6.4 - 8.2 gm/dL) 7.5 Albumin (3.2 - 4.7 gm/dl) 3.5 Coagulation INR (0.89 - 1.14) 1.0 PTT ([place]) (25.86 - 36.07 SECONDS) 31.60 PT Patient/Control Mix (9.9 - 12.8 SECONDS) 11.7 Hematology WBC (4.5 - 11.0 K/mm3) 13.4 H RBC (3.80 - 5.20 M/mm3) 4.60 Hgb (12.0 - 16.0 gm/dL) 13.0 Hct (36.0 - 48.0 %) 40.1 MCV (82.0 - 99.0 UM3) 87.2 MCH (25.5 - 32.5 UUG) 28.3 MCHC (29.0 - 35.5 gm/dL) 32.4 RDW (11.5 - 15.0 %) 13.7 Plt Count (150 - 400 K/mm3) 519 H MPV (7.4 - 10.4 fl) 9.2 Neut % (Auto) (49.0 - 76.0 %) 61.4 Lymph % (Auto) (23.0 - 38.0 %) 29.7 [place] % (Auto) (1.0 - 10.0 %) 6.0 Eos % (Auto) (1.0 - 5.0 %) 1.7 Baso % (Auto) (0.0 - 1.0 %) 0.8 Neut # (Auto) (2.4 - 6.3 K/mm3) 8.2 H Lymph # (Auto) (1.2 - 4.0 K/mm3) 4.0 [place] # (Auto) (0.0 - 0.6 K/mm3) 0.8 H Eos # (Auto) (0.0 - 0.7 K/MM3) 0.2 Baso # (Auto) (0.0 - 0.2 K/mm3) 0.1 Recent Impressions:CAT SCAN - CT HEAD/BRAIN W/O CONT 07/27 2014 Report Impression - Status: SIGNED Entered: 07/27/20182037 IMPRESSION: No acute findings. Mild microvascular white matter change.Impression By: Kadie - Lacey Triana M.D. Lab Imaging StatementLaboratory radiographic studies reviewed and considered in the medical decision-making. RadiographyCT Head Study No contrast Interpretation/Wet Read by Interpret - Radiologist Reviewed by ED physician Portions of this section were scribed by Kristine Hughes on 07/27/18 at 1953 Re-Evaluation MDM Free Text MDM NotesFree Text MDM NotesCT Head/Brain was ordered for the following reason: Duration of current GERBER longer than "her usual" GERBER )( Re-Evaluation/Progress #1Text/Dict NotePt sleeping, NAD, awakens to light touch, states feels much better, understandsall results, ddx, and tx plan. Time of Re-Eval 2133)( Re-Eval Status Improved ED CourseMedication(s) OrderedMedication(s) Ordered:Central Nervous System Agents Sig/César Start time Last Medication Dose Route Stop Time Status Admin Ketorolac 30 MG X1ED STA 07/27 1935 DC 07/27 Tromethamine IV 07/27 Electrolytic, Caloric, And Carlos Sig/César Start time Last Medication Dose Route Stop Time Status Admin Sodium Chloride 1,000 ML X1ED STA 07/27 1936 DC 07/27 IV 07/27 Gastrointestinal Drugs Sig/César Start time Last Medication Dose Route Stop Time Status Admin Metoclopramide HCl 10 MG X1ED STA 07/27 1936 DC 07/27 IV 07/27 Hormones And Synthetic Substit Sig/César Start time Last Medication Dose Route Stop Time Status Admin Dexamethasone Sodium 8 MG X1ED STA 07/27 1936 DC 07/27 Phosphate IV 07/27 Portions of this section were scribed by Kristine Hughes on 07/27/18 at 1953 Patient Discharge Departure Vital Signs/ConditionVital SignsFirst Documented: Result Date Time Pulse Ox 100 07/27 1918 B/P 127/74 07/27 1918 B/P Mean 91 07/27 1918 O2 Delivery Room air 07/27 1918 Temp 37.1 07/27 1918 Pulse 99 07/27 1918 Resp 18 07/27 1918 Last Documented: Result Date Time Pulse Ox 98 07/27 2254 B/P 113/61 07/27 2254 B/P Mean 78 07/27 2254 O2 Delivery Oxymizer 07/27 2254 Temp 36.8 07/27 2254 Pulse 88 07/27 2254 Resp 20 07/27 2254 All vital signs available at the time of this entry have been reviewed. Condition Stable Clinical ImpressionClinical ImpressionPrimary Impression: Headache Disposition DecisionDischarge )( Discharged to Home Yes )( Time 2135 )( Date 07/27/18 Discharge/Care PlanCounseled Regarding Diagnosis, Lab results, Imaging studies, Prescriptions, Needfor follow-up, Smoking cessation, When to return to EDPrescriptionsibuprofenPrescriptions Reviewed Risks, Benefits, Alternative treatment Discharge NoteI have spoken with the patient and/or caregivers. I have explained the patient'scondition, diagnoses and treatment plan based on the information available to meat this time. I have answered the patient's and/or caregiver's questions and addressed any concerns. The patient and/or caregivers have as good an understanding of the patient's diagnosis, condition and treatment plan as can beexpected at this point. The vital signs have been stable. The patient's condition is stable and appropriate for discharge from the emergency department. The patient will pursue further outpatient evaluation with the primary care physician or other designated or consulting physician as outlined in the discharge instructions. The patient and/or caregivers are agreeable to this planof care and follow-up instructions have been explained in detail. The patient and/or caregivers have received these instructions in written format and have expressed an understanding of the discharge instructions. The patient and/or caregivers are aware that any significant change in condition or worsening of symptoms should prompt an immediate return to this or the closest emergency department or a call to 911. Quality MeasuresPrimary Headache CT Duration of current GERBER "lasting longer" than her usual HASmoking Cessation Screened, tobacco user, Tobacco cess interventionTobacco Screening/Cessation 18 years or older, Tobacco user, Smoking cessation offered, Counseled 3-10 minutes Smoking Cessation CounselingThe patient was questioned regarding their smoking habits, and I have determined, as the patient's treating physician, that there is a medical necessity in regards to the patient's medical condition to provide smoking cessation program education. The patient was advised to stop smoking and counseled for a period ofgreater than 3 minutes. The patient was instructed to follow up with a primary care physician for smoking cessation and given information regarding local smoking cessation programs in the area. The patient received detailed discharge instructions as to how to stop smoking. The patient expressed an understanding of the need to follow up and the plan for smoking cessation. Supervising Physician Note Scribe StatementKristine Hughes, 07/27/181953, scribing for and in the presence of Dr. Enriquez.Signed By: Kristine Hughes, 07/27/181953 Provider Scribed StatementI personally performed the services described in this documentation and reviewedthe documentation that was dictated to the scribe(s) in my presence, and it accurately records my words and actions. Rocio Enriquez, 07/27/18 Portions of this section were scribed by Kristine Hughes on 07/27/18 at 1953 at 1602RPT #:[id number] OF REPORTEDEmergency department [id number]:[id number] for patient [id number] [facility] 2018-07-16 22:38:00 [id number] [address] PATIENT NAME: FAM VALLECILLO ADMIT DATE: 07/16/18ACCOUNT NO: [id number] ROOM NO: [facility] AGE: 52 REPORT TYPE: CONSULTATION REPORT SEX: F ADMITTING PHYSICIAN:Halima Mcdonnell MD ATTENDING PHYSICIAN:Halima Mcdonnell MD CONSULTATION DATE: 07/16/2018 CONSULTING PHYSICIAN: Iván Rao MD Consult from Dr. Mcdonnell. REASON FOR THE CONSULT: Presumptive diagnosis of left Bartholin's cyst. HISTORY OF PRESENT ILLNESS: The patient is a 52-year-old multigravida,transferred from [facility] due to the fact that they do not have anOB/THERAPEUTIC STRATEGY LEAD staff for further care of a presumptive diagnosis of Bartholin's cyst. She was seen at [facility] on the of this month where she presentedcomplaining of not feeling well with labial pain and swelling. Workup that wasdone at [facility] showed WBC of 22. On the , when she presented, she gotworked up for sepsis that was negative. [facility] count has come down to 20.8. The patient has no fever. The patient went to the [facility] from a crisis center in [facility]. Stated that she lost her family and also had no place to stay. The patient is deaf. Communication was mostly through writing on a piece ofpaper. PAST MEDICAL HISTORY: She has had history of staph infection. Stated that sheis deaf, ____. 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 OBSTETRIC HISTORY: She has had 3 vaginal deliveries. ALLERGIES: SHE IS NOT ALLERGIC TO ANY MEDICATION. MEDICATIONS: She was started on Rocephin and Flagyl by the [facility]. SOCIAL HISTORY: She is a heavy smoker. PHYSICAL EXAMINATION:GENERAL: Well-developed, well-nourished female, not in acute distress.VITAL SIGNS: Stable.GENITOURINARY: Pertinent physical finding examination that was done, her GUexamination, her vulva did not show any Bartholin's cyst, but instead she haswhat appears to be ingrown hair follicle on the left labia that seem to be PATIENT NAME: FAM VALLECILLO [id number] [address] PATIENT NAME: FAM VALLECILLO ADMIT DATE: 07/16/18ACCOUNT NO: [id number] ROOM NO: [facility] AGE: 52 REPORT TYPE: CONSULTATION REPORT SEX: F ADMITTING PHYSICIAN:Halima Mcdonnell MD ATTENDING PHYSICIAN:Halima Mcdonnell MD resolving.The rest of examination was essentially unremarkable. ASSESSMENT: Left labia ingrown hair follicle. RECOMMENDATIONS: Will be to continue on the antibiotics. Repeat her whitecount to see if it is trending back to normal. At this time, there is nothingGYN to be done. Thank you for the consult. Dictated By: Iván Rao MD WT: CON:GROXANNE/WES/NTSDD: 07/16/2018 22:38:51DT: 07/16/2018 23:22:12Conf#: [id number]/DID#: [id number] Authenticated by Iván Rao MD On 07/31/2018 03:00:53 PM at 1501 PATIENT NAME: FAM VALLECILLO :22:00G.[id number] for patient [id number]:10 [facility]
[2023-09-04 18:37] LABS: Absolute Lymphocytes (CBC) 2.6 K/uL (0.7-4.9); MCV 89.6 fL (80-100); MPV 7.6 fL (7.6-11.3); Platelets 399 thou/uL (152-406); RBC Red Blood Cell Count 4.92 M/uL (3.86-4.86)
[2023-09-04 18:44] LABS: Specific Gravity 1.017 (1.005-1.030)
[2023-09-04 18:49] LABS: Albumin 3.7 g/dL (3.4-5.0); Bilirubin Total 0.3 mg/dL (0.2-1.0); Potassium 3.9 mEq/L (3.5-5.1); Protein, Total 7.8 g/dL (6.4-8.2)
[2023-09-04 18:53] LABS: Specific Gravity 1.017 (1.005-1.030); Urine Bacteria <20 /HPF (<20); Urine Bilirubin NEGATIVE (Negative); Urine Blood Negative (Negative); Urine Clarity Extremely Turbid (Clear); Urine Color Light-Yellow (Yellow); Urine Glucose NEGATIVE (Negative); Urine Mucus Slight /HPF (None Seen); Urine Protein NEGATIVE (Negative); Urine RBC <5 /HPF (None Seen); Urine Urobilinogen Normal (Normal)
--- NOTE | 2023-09-04 19:52 | RAD REPORT ---
EXAM DESCRIPTION: CT - Abdomen Pelvis W Contrast - 09/04/2023 7:39 pm CLINICAL HISTORY: Abdominal pain COMPARISON: 2022 TECHNIQUE: Computed axial tomography of the abdomen pelvis was obtained. 100 cc Isovue-300 was admin istered intravenously. Oral contrast was not requested which limits evaluation of bowel and appendix All CT scans are performed using dose optimization technique as appropriate and may include automated exposure control or mA/KV adjustment according to patient size. FINDINGS: The liver, spleen, pancreas, adrenal and kidneys appear unremarkable. There is no evidence of diverticulitis. Hysterectomy. No adnexal mass Small right and small to moderate left inguinal hernias Old left pubic bone fracture Wall of the distal esophagus appears mildly thickened IMPRESSION: Wall of the distal esophagus appears mildly thickened perhaps secondary to inflammation
--- NOTE | 2023-09-04 20:31 | EDPHYS ---
Physician Documentation [facility] Name: Chula Pierre Age: 58 yrs Sex: Female : 1965 Arrival Date: 09/04/2023 Time: 17:09 Bed DX3 Private MD: ED Physician Luis Armando Layton HPI: 09/04 17:35 This 58 yrs old Female presents to ER via Ambulatory with complaints of Abdominal Pain, cp Vomiting. 17:35 The patient presents with abdominal pain in the epigastric area, in the upper abdomen. cp 17:35 Onset: The symptoms/episode began/occurred 2 day(s) ago. cp 17:35 Associated signs and symptoms: Pertinent positives: anorexia, diarrhea today, Pertinent cp negatives: blood in stools, constipation, fever, vomiting blood. The symptoms are described as waxing/waning. Severity of pain: in the emergency department the pain is unchanged despite home interventions. Historical: - Allergies: 17:26 No Known Allergies; nj1 - PMHx: 17:26 None; nj1 - Immunization history:: Client reports receiving the 2nd dose of the Covid vaccine. - Social history:: Smoking status: Patient reports the use of cigarette tobacco products, smokes one-half pack cigarettes per day. ROS: 17:40 Constitutional: Positive for poor PO intake, Negative for body aches, chills, fever, cp 17:40 Eyes: Negative for injury, pain, redness, and discharge, cp 17:40 ENT: Negative for drainage from ear(s), ear pain, sore throat, difficulty swallowing, difficulty handling secretions, 17:40 Cardiovascular: Negative for chest pain, edema, palpitations, 17:40 Respiratory: Negative for cough, shortness of breath, wheezing, 17:40 Abdomen/GI: Positive for abdominal pain, nausea, vomiting, and diarrhea, anorexia, Negative for hematemesis, black/tarry stool, rectal bleeding, 17:40 Back: Negative for radiated pain, 17:40 Neuro: Negative for altered mental status, dizziness, headache, loss of consciousness, syncope, weakness, 17:40 All other systems are negative, Exam: 17:45 Constitutional: The patient appears in no acute distress, alert, awake, cp non-diaphoretic, non-toxic, well developed, well nourished, uncomfortable, 17:45 Head/Face: Normocephalic, atraumatic. cp 17:45 Eyes: Periorbital structures: appear normal, Conjunctiva: normal, no exudate, no injection, Sclera: no appreciated abnormality, Lids and lashes: appear normal, bilaterally, 17:45 ENT: External ear(s): are unremarkable, Nose: is normal, Mouth: Lips: moist, Oral mucosa: pink and intact, moist, Posterior pharynx: is normal, airway is patent, no erythema, no exudate, 17:45 Neck: ROM/movement: is normal, is supple, without pain, no range of motions limitations, 17:45 Chest/axilla: Inspection: normal, 17:45 Cardiovascular: Rate: normal, Rhythm: regular, Edema: is not appreciated, JVD: is not appreciated, 17:45 Respiratory: the patient does not display signs of respiratory distress, Respirations: normal, no use of accessory muscles, no retractions, labored breathing, is not present, Breath sounds: are clear throughout, no decreased breath sounds, no stridor, no wheezing, 17:45 Abdomen/GI: Inspection: abdomen appears normal, Bowel sounds: active, all quadrants, Palpation: soft, in all quadrants, moderate abdominal tenderness, in the epigastric area, right upper quadrant and left upper quadrant, rebound tenderness, is not appreciated, voluntary guarding, is elicited in the epigastric area, 17:45 Back: CVA tenderness, is absent, 17:45 Neuro: Orientation: to person, place \T\ time. Mentation: is normal, Motor: moves all fours, strength is normal, Sensation: is normal, Vital Signs: 17:23 BP 124 / 105; Pulse 84; Resp 18; Temp 98.6; Pulse Ox 98% on R/A; Weight 58.97 kg; nj1 Height 5 ft. 2 in. ; Pain 10/10; 20:46 BP 118 / 90; Pulse 88; Resp 18; Pulse Ox 98% ; as6 17:23 Body Mass Index 23.78 (58.97 kg, 157.48 cm) nj 17:23 Pain Scale: Adult nj MDM: 17:30 Patient medically screened. cp 18:00 Differential diagnosis: appendicitis, cholecystitis, Cholelithiasis, diverticulitis, cp gastritis, pancreatitis, Peptic Ulcer Disease, Perf. Duodenal Ulcer, Perf. Gastric Ulcer, Pyelonephritis, Ureterolithiasis, urinary tract infection. 20:30 Data reviewed: vital signs, nurses notes, lab test result(s), radiologic studies, CT cp scan, plain films. 20:30 I considered the following discharge prescriptions or medication management in the emergency department Medications were administered in the Emergency Department. See MAR. Counseling: I had a detailed discussion with the patient and/or guardian regarding the historical points, exam findings, and any diagnostic results supporting the discharge/admit diagnosis, lab results, radiology results, to return to the emergency department if symptoms worsen or persist or if there are any questions or concerns that arise at home. Response to treatment: the patient's symptoms have markedly improved after treatment, and as a result, I will discharge patient. Special discussion: Based on the patient's Hx, exam, and Dx evaluation, there is no indication for emergent surgery or inpatient Tx. It is understood by the patient/guardian that if the Sx's persist or worsen they need to return immediately for re-evaluation. 09/04 17:28 Order name: CBC with Diff; Complete Time: 19:34 09/04 19:34 Interpretation: Normal except: RBC 4.92; HGB 15.1. 09/04 17:28 Order name: CMP; Complete Time: 19:34 09/04 19:34 Interpretation: Normal except: GFR 83; AST 12; CA 10.4; GLOB 4.1; A/G 0.9. 09/04 17:28 Order name: Lipase; Complete Time: 19:34 09/04 19:35 Interpretation: Reviewed. 09/04 17:28 Order name: Test, Urine; Complete Time: 19:34 09/04 19:35 Interpretation: Reviewed. 09/04 17:28 Order name: Urinalysis w/ reflexes; Complete Time: 19:34 09/04 19:34 Interpretation: Normal except: [facility] Extremely Turbid. 09/04 18:40 Order name: XRAY Chest (1 view); Complete Time: 20:37 09/04 20:37 Interpretation: Report review. 09/04 18:40 Order name: CT Abd/Pelvis - IV Contrast Only; Complete Time: 20:05 09/04 17:28 Order name: IV Saline Lock; Complete Time: 18:19 09/04 17:28 Order name: Labs collected and sent; Complete Time: 18:20 cp 09/04 20:06 Order name: PO challenge; Complete Time: 20:38 cp Administered Medications: 18:39 Drug: Famotidine IVP 20 mg IVP once; dilute with 10 mL 0.9% NaCl; give over 2 minutes hb Route: IVP; Site: left antecubital; 20:44 Follow up: Response: No adverse reaction as6 18:40 Drug: NS 0.9% IV 1000 ml IV at 1 bolus Per protocol; 1000 mL bolus Route: IV; Rate: 1 hb bolus; Site: left antecubital; 20:44 Follow up: Response: No adverse reaction; IV Status: Completed infusion; IV Intake: as6 1000ml 18:40 Drug: TORadol - Ketorolac IVP 15 mg IVP once Route: IVP; Site: left antecubital; hb 20:44 Follow up: Response: No adverse reaction as6 18:40 Drug: Ondansetron IVP 4 mg IVP once; over 2 minutes Route: IVP; Site: left antecubital; hb 20:44 Follow up: Response: No adverse reaction as6 20:30 Drug: Pantoprazole IVP 40 mg IVP once Route: IVP; Site: left antecubital; nj1 20:44 Follow up: Response: No adverse reaction as6 20:30 Drug: GI Cocktail without - (Maalox PO 30 ml, Lidocaine Mucous Membrane 2 % 15 nj1 ml) PO once Route: PO; 20:44 Follow up: Response: No adverse reaction as6 Disposition Summary: 09/04/23 20:30 Discharge Ordered Notes: Location: Home cp Problem: new cp Symptoms: have improved cp Condition: Stable cp Diagnosis - Esophagitis, unspecified cp - Nausea with vomiting, unspecified cp Followup: cp - With: Cirilo Paul MD - When: 2 - 3 days - Reason: Recheck today's complaints Discharge Instructions: - Discharge Summary Sheet cp - Esophagitis cp - Nausea and Vomiting, Adult cp Forms: - Medication Reconciliation Form cp - Thank You Letter cp - Antibiotic Education cp - Prescription Opioid Use cp - Patient Portal Instructions cp - Leadership Thank You Letter cp Prescriptions: - Protonix 40 mg Oral Tablet - take 1 tablet ORAL route once daily; 30 tablet; Refills: 0, Product Selection cp Permitted - Zofran 4 mg Oral Tablet - take 1 tablet ORAL route every 12 hours As needed; 20 tablet; Refills: 0, cp Product Selection Permitted Signatures: Dispatcher [employer] Luis Armando Sethi PA PA cp Baxter, Heather, RN RN Venice Saldana RN RN nj1 Madi Albarado RN as6
--- NOTE | 2023-09-04 20:31 | ER ---
Nurse's Notes [facility] Name: Chula Pierre Age: 58 yrs Sex: Female : 1965 Arrival Date: 09/04/2023 Time: 17:09 Bed DX3 Private MD: Diagnosis: Esophagitis, unspecified;Nausea with vomiting, unspecified Presentation: 09/04 17:23 Chief complaint: Patient states: Abdominal pain and vomiting. Diarrhea yesterday. nj1 Unable to keep anything down. 17:23 Coronavirus screen: Vaccine status: Patient reports receiving the 2nd dose of the covid nj1 vaccine. Ebola Screen: Patient denies travel to an Ebola-affected area in the 21 days before illness onset. Risk Assessment: Do you want to hurt yourself or someone else? Patient reports no desire to harm self or others. Onset of symptoms was September 03, 2023. 17:23 Method Of Arrival: Ambulatory [facility] 17:29 Initial Sepsis Screen: Does the patient meet any 2 criteria? No. Patient's initial [facility] sepsis screen is negative. Does the patient have a suspected source of infection? No. Patient's initial sepsis screen is negative. 17:29 Acuity: YASMANI 3 nj1 Historical: - Allergies: 17:26 No Known Allergies; nj1 - PMHx: 17:26 None; nj1 - Immunization history:: Client reports receiving the 2nd dose of the Covid vaccine. - Social history:: Smoking status: Patient reports the use of cigarette tobacco products, smokes one-half pack cigarettes per day. Screenin:45 [facility] ED Fall Risk Assessment (Adult) Score/Fall Risk Level 0 - 2 = Low Risk. Abuse as6 screen: Denies threats or abuse. Denies injuries from another. Nutritional screening: No deficits noted. Tuberculosis screening: No symptoms or risk factors identified. Assessment: 20:47 Reassessment: Patient states feeling better. Patient states symptoms have improved. as6 General: Appears in no apparent distress. Behavior is calm, cooperative. Pain: Denies pain. Vital Signs: 17:23 BP 124 / 105; Pulse 84; Resp 18; Temp 98.6; Pulse Ox 98% on R/A; Weight 58.97 kg; nj1 Height 5 ft. 2 in. ; Pain 10/10; 20:46 BP 118 / 90; Pulse 88; Resp 18; Pulse Ox 98% ; as6 17:23 Body Mass Index 23.78 (58.97 kg, 157.48 cm) nj1 17:23 Pain Scale: Adult nj1 ED Course: 17:10 Patient arrived in ED. rg4 17:17 Luis Armando Hebert PA is PHCP. cp 17:17 Luis Armando Layton MD is Attending Physician. cp 17:28 Arm band placed on right wrist. nj1 17:29 Triage completed. nj1 18:19 CBC with Diff Sent. bc6 18:20 CMP Sent. bc6 18:20 Lipase Sent. bc6 18:20 Test, Urine Sent. bc6 18:20 Urinalysis w/ reflexes Sent. bc6 18:20 Inserted saline lock: 20 gauge in left antecubital area, using aseptic technique. Blood bc6 collected. 19:41 CT Abd/Pelvis - IV Contrast Only In Process Unspecified. EDMS 20:24 XRAY Chest (1 view) In Process Unspecified. EDMS 20:30 Cirilo Paul MD is Referral Physician. cp 20:45 Bed in low position. Call light in reach. Provided Education on: follow up. as6 20:46 No provider procedures requiring assistance completed. IV discontinued, intact, as6 bleeding controlled, No redness/swelling at site. Pressure dressing applied. Administered Medications: 18:39 Drug: Famotidine IVP 20 mg IVP once; dilute with 10 mL 0.9% NaCl; give over 2 minutes hb Route: IVP; Site: left antecubital; 20:44 Follow up: Response: No adverse reaction as6 18:40 Drug: NS 0.9% IV 1000 ml IV at 1 bolus Per protocol; 1000 mL bolus Route: IV; Rate: 1 hb bolus; Site: left antecubital; 20:44 Follow up: Response: No adverse reaction; IV Status: Completed infusion; IV Intake: as6 1000ml 18:40 Drug: TORadol - Ketorolac IVP 15 mg IVP once Route: IVP; Site: left antecubital; hb 20:44 Follow up: Response: No adverse reaction as6 18:40 Drug: Ondansetron IVP 4 mg IVP once; over 2 minutes Route: IVP; Site: left antecubital; hb 20:44 Follow up: Response: No adverse reaction as6 20:30 Drug: Pantoprazole IVP 40 mg IVP once Route: IVP; Site: left antecubital; nj1 20:44 Follow up: Response: No adverse reaction as6 20:30 Drug: GI Cocktail without - (Maalox PO 30 ml, Lidocaine Mucous Membrane 2 % 15 nj1 ml) PO once Route: PO; 20:44 Follow up: Response: No adverse reaction as6 Medication: 20:46 VIS not applicable for this client. as6 Intake: 20:44 IV: 1000ml; Total: 1000ml. as6 Outcome: 20:30 Discharge ordered by . cp 20:45 Discharged to home ambulatory, with friend, as6 20:45 Condition: stable 20:45 Discharge instructions given to patient, Instructed on discharge instructions, follow up and referral plans. medication usage, Demonstrated understanding of instructions, follow-up care, medications, Prescriptions given X 2, 20:47 Patient left the ED. as6 Signatures: Dispatcher [employer] EDMS Luis Armando Hebert PA PA cp Mita Gil, RN Michelle Willson rg4 Madi Albarado RN RN as6 Angelica Hall 6 [place], TAYLOR RN nj1 Corrections: (The following items were deleted from the chart) 17:28 17:23 BP 124 / 105; Pulse 84bpm; Resp 18bpm; Pulse Ox 98% RA; Temp 98.6F; nj1 nj1
--- NOTE | 2023-09-04 20:33 | RAD REPORT ---
EXAM DESCRIPTION: [facility] Single View09/04/2023 8:22 pm CLINICAL HISTORY: Abdominal pain COMPARISON: none FINDINGS: The lungs appear clear of acute infiltrate. The heart is normal size IMPRESSION: No acute abnormalities displayed
[2023-09-04 21:25] VITALS: BP 118/90; TEMP 98.6; O2SAT 98
== END ==
LOC: ER 17:09
DX: K20.90 Esophagitis, unspecified without bleeding (principal); F17.210 Nicotine dependence, cigarettes, uncomplicated
CPT/HCPCS: 85025; 81001; 36415; 81025; 83690; 80053; 74177; 71045; Q9967; C9113; J2405; J7030; 96361; 96374; 96375; 99284

== ENCOUNTER 2023-11-14 15:41 | Emergency (ER) | payer OTHER ==
--- OUTSIDE RECORDS SUMMARY | 2023-11-14 15:45 | XMS REPORT | Continuity of Care Document ---
Author Name Unknown Address [address] [facility] [address] [place] [address] [facility] thconnect Address [address] [facility] [address] [place] [address] Care Team Providers Care Customer Advocate Name Role Phone PCP, PATIENT DOES NOT HAVE A Primary Care Physic FRANCIE Saldana Attending Clinician Francie Duarte Attending Clinician [phone] ELSA MIXON Admitting Clinician Unavailable Payers Payer Name Policy Type Policy Number Effective Date Expirati on Date Source Self Pay P [id number] 2020 00:00:00 MEDICAID [facility] [id number] 2021 00:00:00 Problems Condition Name Condition Details Condition Category Status Onset Date Resolution Date Last Treatment Date Treating Clinician Comments Source Obesity (BMI 30-39.9) Obesity (BMI 30-39.9) Disease Active 02-01 00:00: 00 [facility] Cellulitis Cellulitis Disease Active 02-01 00:00: 00 [facility] Allergies, Adverse Reactions, Alerts Allergy Name Allergy Type Status Severity Reaction(s) Onset Date Inactive Date Treating Clinician Comments Source hydrocod one DA Active U - 00:00: 00 [facility] hydrocod one DA Active U 07-15 00:00: 00 [facility] morphine DA Active SV 07-15 00:00: 00 [facility] No Known Allergie s DA Active U 07-14 00:00: 00 [facility] HYDROCOD ONE DRUG INGREDI Active ITCHING 2017-07 00:00: 00 [facility] Hydrocod one Propensi ty to adverse reaction s Active Itching 2017-07 00:00: 00 [facility] Social History Social Habit Start Date Stop Date Quantity Comments Source [facility] of [facility] use Cigarette Smoker [facility] Alcohol intake 2023-07-07 00:00:00 2023-07-07 00:00:00 Current non-drinker of alcohol (finding) [facility] History of Social function 2023-07-07 00:00:00 2023-07-07 00:00:00 [facility] Cigarettes smoked current (pack per day) - Reported 2017-02-01 00:00:00 2017-02-01 00:00:00 [facility] Cigarette pack-years 2017-02-01 00:00:00 2017-02-01 00:00:00 [facility] Tobacco use and exposure 2017-02-01 00:00:00 2017-02-01 00:00:00 Smokeless tobacco non-user [facility] Sex Assigned At 1965 00:00:00 1965 00:00:00 [facility] Smoking Status Start Date Stop Date Source Smokes tobacco daily 2017-02-01 00:00:00 [facility] Medications Ordered Medication Name Filled Medication Name Start Date Stop Date Current Medication? Ordering Clinician Indication Dosage Frequency Signature (SIG) Comments Components Source iopamidol (ISOVUE 370-500 mL) injection 100 mL 2022-07 10:45: 00 07-07 10:45 :00 No [id number] 100mL 100 mL, Intravenou s, ONCE, 1 dose, On Airam 07/07/23 at 0445, Routine [facility] ondansetron (ZOFRAN (PF)) injection 4 mg 2022-07 09:45: 00 07-07 10:10 :00 No 4mg 4 mg, Slow IV Push, ONCE, 1 dose, On Airam 07/07/23 at 0345, [facility] NaCl 0.9% (NS) bolus infusion 1,000 mL 2022-07 08:45: 00 07-07 10:44 :00 No 1000mL at 999 mL/hr, 1,000 mL, IV Infusion, ONCE, 1 dose, On Airam 07/07/23 at 0245, [facility] ondansetron (ZOFRAN (PF)) injection 4 mg 2022-07 08:45: 00 07-07 08:18 :00 No 4mg 4 mg, Slow IV Push, ONCE, 1 dose, On Airam 07/07/23 at 0245, [facility] pantoprazol e (PROTONIX) 40 mg EC tablet 2022-07 00:00: 00 Yes [id number] 40mg Take 1 tablet by mouth in the morning. [facility] dicyclomine 20 mg tablet 2022-07 00:00: 00 Yes [id number] 20mg Take 1 tablet by mouth every 6 (six) hours as needed for Abdominal pain. [facility] ondansetron (ZOFRAN) 4 mg tablet 2022-07 00:00: 00 Yes [id number] 4mg Take 1 tablet by mouth every 8 (eight) hours as needed for Nausea and Vomiting (N/V). [facility] traMADOL (ULTRAM) 50 mg tablet 08-20 00:00: 00 Yes [id number] 50mg Take 1 tablet by mouth every 6 (six) hours as needed for Pain (scale 7-10). [facility] butalbital- acetaminoph en-caff 50-325-40 mg tablet 02-08 00:00: 00 Yes 1{tbl} Take 1 tablet by mouth every 6 (six) hours as needed (GERBER). [facility] acetaminoph en 325 mg tablet 02-08 00:00: 00 Yes 650mg Take 2 tablets by mouth every 6 (six) hours as needed for Pain (scale 1-3). [facility] simethicone 80 mg chewable tablet 02-08 00:00: 00 Yes 80mg Take 1 tablet by mouth after meals and at bedtime. [facility] pantoprazol e 20 mg EC tablet 02-08 00:00: 00 Yes 20mg Take 1 tablet by mouth daily. [facility] acyclovir 200 mg capsule 01-28 00:00: 00 Yes 800mg Take 4 capsules by mouth 5 (five) times daily. [facility] Vital Signs Vital Name Observation Time Observation Value Comments S ource Heart rate 2023-07-07 10:30:00 79 /min [facility] Oxygen saturation in Arterial blood by Pulse oximetry 2023-07-07 10:30:00 99 /min [facility] Systolic blood pressure 2023-07-07 10:10:00 117 mm[Hg] [facility] Diastolic blood pressure 2023-07-07 10:10:00 89 mm[Hg] [facility] Respiratory rate 2023-07-07 10:10:00 20 /min [facility] Body temperature 2023-07-07 07:47:00 37.28 Tami [facility] Body height 2023-07-07 07:47:00 157.5 cm [facility] Body weight 2023-07-07 07:47:00 54.885 kg [facility] BMI 2023-07-07 07:47:00 22.13 kg/m2 [facility] Procedures Procedure Date / Time Performed Performing Clinicia n Source CT ABDOMEN PELVIS W CONTRAST 2023-07-07 09:59:51 Elsa Mixon [facility] LIPASE 2023-07-07 08:18:00 Francie Mcadams [place] [facility] TROPONIN I 2023-07-07 08:18:00 Elsa Mixon [facility] COMP. METABOLIC PANEL (01139) 2023-07-07 08:18:00 [facility] CBC WITH DIFF 2023-07-07 08:18:00 [facility] NOTICE OF PRIVACY PRACTICES 2023-07-07 07:36:51 Doctor Unassigned, [place] [facility] CONSENT/REFUSAL FOR DIAGNOSIS AND TREATMENT 2023-07-07 07:27:55 Doctor Unassigned, [place] [facility] Encounters Start Date/Time End Date/Time Encounter Type Admission Type Attending [facility] Care Facility Care Department Encounter ID Source 2021 05:05:58 Outpatient [facility] [id number] [facility] 2021-04-26 09:44:29 Outpatient [facility] [id number] [facility] 2023-07-07 02:02:00 2023-07-07 05:12:00 Emergency [facility] ERT [id number] [facility] 2023-07-07 02:02:00 2023-07-07 05:12:00 Emergency [place], [facility] [id number] [id number] [facility] Results Test Description Test Time Test Comments [...] secondarysigns of appendicitis. The bones are unremarkable. [facility]855[facility]20[facility]-07 08:48:06* Test Item Value Reference Range Interpretation Comme nts NA (test code = 8687339111) 139 mmol/L 135-145 K (test code = 9599420844) 4.0 mmol/L 3.5-5.0 CL (test code = 7325851223) 105 mmol/L 98-108 CO2 TOTAL (test code = 5528442478) 25 mmol/L 23-31 AGAP (test code = 0066235726) 9 2-16 BUN (test code = 7890694560) 16 mg/dL 7-23 GLUCOSE (test code = 9573959224) 128 mg/dL 70-110 H CREATININE (test code = 2203351481) 0.60 mg/dL 0.50-1.04 TOTAL BILI (test code = 3181478525) 1.0 mg/dL 0.1-1.1 CALCIUM (test code = 2653390724) 9.5 mg/dL 8.6-10.6 T PROTEIN (test code = 7293239990) 8.3 g/dL 6.3-8.2 H ALBUMIN (test code = 5926172875) 4.7 g/dL 3.5-5.0 ALK PHOS (test code = 4243413311) 99 U/L 34-122 ALTv (test code = 1742-6) 19 U/L 5-35 AST(SGOT) (test code = 0372628258) 40 U/L 13-40 eGFR (test code = 14828-4) 104.8 mL/min/1.73m2 CKD-EPI eGFR (2020). Assuming creatinine has been stable day-to-day for at least three months, the eGFR indicates Category G1 (>= 90 mL/min/1.73 m2) Lab Interpretation (test code = 06487-3) [facility] 08:47:46* Test Item Value Reference Range Interpretation Comme nts LIPASE (test code = 5992983576) 58 U/L 0-220 Lab Interpretation (test cod e = 74946-2) Normal [facility] WITH WHFU2401-17-72 08:33:27* Test Item Value Reference Range Interpretation [...] 33.8 g/dL 31.6-35.1 RDW-SD (test code = 80503-4) 44.3 fL 39.0-49.9 RDW-CV (test code = 788-0) 13.2 % 12.0-15.5 PLT (test code = 777-3) 432 See_Comment H [Automated messa ge] The system which generated this result transmitted reference range: 166 - 358 10*3/?L. The reference range was not used to interpret this result as normal/abnormal. MPV (test code = 25699-1) 9.6 fL 9.5-12.9 NRBC/100 WBC (test code = 3926210979) 0.0 See_Comment [Automated [employer] ssage] The system which generated this result transmitted reference range: 0.0 - 10.0 /100 WBCs. The reference range was not used to interpret this result as normal/abnormal. NRBC x10^3 (test code = 6088326384) See_Comment [Automated messa ge] The system which generated this result transmitted reference range: 10*3/?L. The reference range was not used to interpret this result as normal/abnormal. GRAN MAT (NEUT) % (test code = 770-8) 68.2 % IMM GRAN % (test code = 6109656639) 0.20 % LYMPH % (test code = 736-9) 23.7 % MONO % (test code = 5905-5) 6.8 % EOS % (test code = 713-8) 0.5 % BASO % (test code = 706-2) 0.6 % GRAN MAT x10^3(ANC) (test code = 1986430687) 6.78 10*3/uL 1.88-7.09 IMM GRAN x10^3 (test code = 1247239864) 0.00-0.06 LYMPH x10^3 (test code = 731-0) 2.36 10*3/uL 1.32-3.29 MONO x10^3 (test code = 742-7) 0.68 10*3/uL 0.33-0.92 EOS x10^3 (test code = 711-2) 0.05 10*3/uL 0.03-0.39 BASO x10^3 (test code = 704-7) 0.06 10*3/uL 0.01-0.07 Lab Interpretation (test code = 78738-2) Abnormal [facility]- CT HEAD/BRAIN W/O [id number] 20:35:00 FAX: Rocio Enriquez MD [phone] [place]: St: REG Name: FAM VALLECILLO [facility] : 1965 Age/S:52/F [address] [facility] Unit: [id number] Loc: E.ERS [facility]: Rocio Enriquez [place] [address] Acct: [id number] Dis Date: Status: REG ER PHONE #: [phone] Exam Date: 07/27/20182014 FAX #: [phone] Reason: HEADACHE EXAMS: CPT CODE: [id number] CT HEAD/BRAIN W/O CONT 83145 CTSCAN OF THE HEAD WITHOUT CONTRAST Location: N13 CLINICAL HISTORY: Headache R 51 TECHNIQUE: Helical CT was performed from the skull base to the vertex without IV contrast using 5mm slice thicknesses. Exam was performed within 24 hours of the patient's arrival to the facility. Coronal and sagittal images were reconstructed. Exam performed without IV contrast has limited sensitivity for detection ofsoft tissue mass or inflammation. This exam was performed according to our departmental dose optimization program, which includes automated exposure control, adjustment of the mA and/ or KV accordingto patient size and/or use of iterative reconstruction [...] PAGE 1 Signed Report- CT HEAD/BRAIN W/O [id number] 20:35:00FAX: Rocio Enriquez MD [phone] [place]: St: [facility] Name: FAM VALLECILLO [facility] : 1965 Age/S: 52/F [address] Unit: [id number] Loc: [place], [place] Phys: [place] [id number] Acct: [id number] Dis Date: Status: [facility] ER PHONE #: [phone] Exam Date: 07/27/20182014 FAX #: [phone] Reason: HEADACHE EXAMS: CPT CODE: [id number] CT HEAD/BRAIN W/O CONT 31537 CT SCAN OF THEHEAD WITHOUT CONTRAST Location: [...] 07/27/2018 (2037 PAGE 1 Signed ReportCOMPREHENSIVE METABOLIC WGYPI2366-43-21 20:29:00* Test Item Value Reference Range Interpretation [...] = ALKP) 112 Units/L 50.0-136.0 N PROTHROMBIN VGUD9092-40-14 20:27:00* Test Item Value Reference Range Interpretation [...] ANTIPHOSPHOLIPID ANTIBODIES 2.5 - 3.5 THROMBOPLASTIN TIME BFIPTAE3913-45-30 20:27:00* Test Item Value Reference Range Interpretation Comme nts THROMBOPLASTIN TIME PARTIAL (test code = PTT) 31.60 SECONDS 25.86-36.07 [facility] Therapeutic Range - APTT of 55.8-85.4 secondscorrelates with plasma heparin concentration of 0.2-0.4 u/mL New range effective - 09/05/2016 COMPREHENSIVE METABOLIC PCXDC1004-66-53 20:22:00* Test Item Value Reference Range Interpretation [...] code = ALKP) Units/L 50.0-136.0 CBC W/AUTO [id number] 20:14:00* Test Item Value Reference Range Interpretation [...] K/mm3 0.0-0.2 N - CT ABD PELVIS W/XOGI4372-11-31 21:04:00FAX: Flo Looney MD [phone] [place]: St: [facility] Name: FAM VALLECILLO [facility] : 1965 Age/S: 52/F [address] [facility] [id number] Loc: [place], [place] Phys: Flo Looney [place] [id number]: [id number] Dis Date: Status: [facility] ER PHONE #: [phone] Exam Date: 07/21/20182043 FAX #: [phone] Reason: upper abd pain EXAMS: CPT CODE: [id number] CT ABD PELVIS W/CONT 73346 Exam: CT abdomen and pelvis with contrast. [...] is unremarkable. No pericholecystic fluid or wall thickeningis present. The pancreas is normal. The pancreatic duct is normal in caliber. The spleen and adrenal glands are normal in size and shape. The kidneys are unremarkable. No nephrolithiasis, perinephricfluid collections or hydronephrosis is seen. The large and small intestine are normal in caliber. The appendix is nonvisualized. No inflammatory change is identified. No lymphadenopathy or free fluidis found in the abdomen or the pelvis. The uterus has been removed. The pelvic structures are otherwise unremarkable. The lung bases are clear. No incidental findings are noted. Impression: 1. No acute abdominal findings. 2. Status post hysterectomy. 3. Otherwise unremarkable exam. PAGE 1 Signed Report (CONTINUED) FAX: Flo Looney MD [phone] [place]: St: [facility]: [facility] 1965 Age/S: 52/F [address] Unit: [id number] Loc: [place], [place]: [place] [address] Acct: [id number] Dis Date: Status: DEP ER PHONE #: [phone] Exam Date: 07/11 FAX #: [phone] Reason: upper abd pain EXAMS: CPT CODE: [id number] CT ABD PELVIS W/CONT 26463 (Continued) at 2104 Reported and signed by: Prashant Kelley M.D. CC: Flo Looney MD Technologist: VANDA TAYLOR Trnscrd Dt/Tm: 07/21/2018 (2103) MarilynFC Orig Print D/T: S: 07/21/2018 (7 PAGE 2 Signed Report- XR CHEST 1 [id number] 19:33:00FAX: Flo Looney MD [phone] [place]: St: DEP Name: FAM VALLECILLO [facility] : 1965 Age/S: 52/F [address] Unit #: [id number] Loc: [place], [place]: [place] [address] Acct: [id number] Dis Date: Status: [facility] ER PHONE #: [phone] Exam Date: 07/21/20181905 FAX #: [phone] Reason: Abdominal Pain EXAMS: CPT CODE: [id number] XR CHEST 1 V 98267 R16 EXAM: - XRCHEST 1 V HISTORY: Abdominal Pain COMPARISON: None FINDINGS: The lungs are clear. No pleural effusion or pneumothorax. The cardiac silhouette is within normal limits. No acute osseous abnormalities.IMPRESSION: No acute cardiopulmonary disease. at 1933 Reported and signed by: Ishmael Benson M.D. CC: Flo Looney MD Technologist: MARIELENA SAHA Trnscrd Date/Time/By: 07/21/2018 (1932) : By: MarilynVB7 PAGE 1 Signed Report FAX:Flo Looney MD [phone] [place]: St: [facility] Name: FAM VALLECILLO [facility] : 1965 Age/S: 52/F [address] Unit #: [id number] Loc: [place], [place]: [place] [address] Acct: [id number] Dis Date: Status: [facility] ER PHONE #: [phone] Exam Date: 07/21/20181905 FAX #: [phone] Reason: Abdominal Pain EXAMS: CPT CODE: [id number] XR CHEST 1 V 30069 (Continued) Orig Print D/T: S: 07/21/2018 (1935) PAGE 2 Signed Report Notes Date/Time Note Provider Source 2023-07-07 04:59:25 I2NhTPknchIA3YbQPc/ixbmaKI5Pn3LzpMUkPDQ WDKpRV0+EvPDXvgufWi13OoCt5219-64-78U60: 59:25 Pt given printed and verbal discharge instructions regarding N/V/epigastric pain, Prescriptions to pt's pharmacyPt verbalized understanding of instructions,pt encouraged to follow up with pcpAdvised to seek medical attention for new/prolonged/worsening of symptoms,No adverse reaction to meds given in ER noted upon dischargePIV d'cd, dressing to site, catheter in tact.Awake, alert oriented, resp reg unlabored, skin w/d, pt leaving in no apparent distress, 43028-2Ljmhxoodx department IydpMM9069-55-79H74:11:57Emergency department NoteTXT1.2.840.000201.1.13.104.2.7.2.72 7879|[id number] for patient oyos28905-0DttjQVPMZGWPROYGmkynjcii C-CDA narrative [id number] R Shehadeh RN[address] Krh[id number] DCMWSPQECLJEERKZRLV7168-77-79X20:11:571 .2.840.807029.1.72.3.15|1.2.840.894541. 1.13.104.2.7.2.727879_[id number] Laura Patiño RN [facility] 2023-07-07 01:41:19 AbCKCTgWEOz+xHK1woBoj3mfYRavW7T+0bJ8c7x EeK6z/ulG7VAoWamo8++psW2D4293-21-00X09: 41:19 Pt arrives ambulatory to ED reporting that for about 3 days she has been unable to hold anything down. She says that she has been vomiting everything she tries to drink or eat. She has become concerned so she came in to be evaled. 87249-8Zhopqtnuj department Triage apybVU6292-55-71P22:56:53[facility] Triage noteTXT1.2.840.531093.1.13.104.2.7.2.72 7879|[id number] for patient ssxj81203-5Kgybadfvs department NoteLNNARRATIVEFormatted C-CDA narrative [id number] L Williams RN[address] UbnlSjaftltimCdmluubjiDZJJ3531543851PMK OOXGAWSFJYKTIXNWLTD4769-68-60B75:56:531 .2.840.232479.1.72.3.15|1.2.840.109216. 1.13.104.2.7.2.727879_[id number] Laura Flaherty RN [facility] 2018-07-27 19:40:00 TLtcsrhtulb5940042HD4YPRLtvSTI1TL2ASv1l dbs6O7agQeC4vF1FhhN8TOwK56I+wmQSVivoAN6 If908276-89-58K05:40:00 [facility] PROVIDER REPORTREPORT#:[id number] REPORT STATUS: SignedDATE:07/27/18 TIME: 1939 PATIENT: FAM VALLECILLO UNIT #: [id number]#: [id number] ROOM/BED:AGE: 52 SEX: F PCP PHYS: No [...] female presents [facility] the ED [facility] c/o constant generalized GERBER onset today AM. GERBER was gradual onset, gradually worsening, not worst headache of her life. Pt reports the residential she resides at does not let her [...] scribed by Kristine Hughes on 07/27/18 at 195 Past Medical History - AdultStated Complaint PT [...] Coagulation INR (0.89 - 1.14) 1.0 PTT ([place]) (25.86 - 36.07 SECONDS) 31.60 PT Patient/Control [...] % (Auto) (23.0 - 38.0 %) 29.7 [place] % (Auto) (1.0 - 10.0 %) 6.0 Eos % (Auto) (1.0 - 5.0 %) 1.7 Baso % (Auto) (0.0 - 1.0 %) 0.8 Neut # (Auto) (2.4 - 6.3 K/mm3) 8.2 H Lymph # (Auto) (1.2 - 4.0 K/mm3) 4.0 [place] # (Auto) (0.0 - 0.6 K/mm3) 0.8 [...] Hughes on 07/27/18 at 1953 at 1602RPT #:[id number] OF REPORTEDEmergen department mhvrnt1504-26-23J23:40:00E.[id number] -0335AVAvailable for patient diucSPBIGCOHBGKRPY9410-79-59H37:02:47 HCAMN 2018-07-16 22:38:00 DEtbzylpmok5004051hn5dyfBxg5XSg0slk4eIE S39vdO3rO9yTkIwuvG40BZjhkCzY7xNpWwsAAjt e0UH0003-15-32E19:38:12[address]58-[address] [address] PATIENT NAME: FAM VALLECILLO ADMIT DATE: 07/16/18ACCOUNT NO: [id number] ROOM NO: [facility] AGE: 52 REPORT TYPE: CONSULTATION REPORT SEX: F ADMITTING PHYSICIAN:Halima Mcdonnell MD ATTENDING PHYSICIAN:Halima Mcdonnell MD CONSULTATION DATE: 07/16/2018 CONSULTING PHYSICIAN: Iván Rao MD Consult from Dr. Mcdonnell. REASON FOR THE CONSULT: Presumptive diagnosis of left Bartholin's cyst. HISTORY OF PRESENT ILLNESS: The patient is a 52-year-old multigravida,transferred from [facility] due to the fact that they do not have anOB/FILTER HELPER staff for further care of a presumptive diagnosis of Bartholin's cyst. She was seen at [facility] on the of this month where she presentedcomplaining of not feeling well with labial pain and swelling. Workup that wasdone at [facility] showed WBC of 22. On the , when she presented, she gotworked up for sepsis that was negative. [facility] Her white count has come down to 20.8. The patient has no fever. The patient went to the [facility] from a crisis center in [facility]. Stated that she lost her family [...] started on Rocephin and Flagyl by the [facility]. SOCIAL HISTORY: She is a heavy smoker. PHYSICAL EXAMINATION:GENERAL: Well-developed, well-nourished female, not in acute distress.VITAL SIGNS: Stable.GENITOURINARY: Pertinent physical finding examination that was done, her GUexamination, her vulva did not show any Bartholin's cyst, but instead she haswhat appears to be ingrown hair follicle on the left labia that seem to be PATIENT NAME: FAM VALLECILLO [id number] [address] PATIENT NAME: FAM VALLECILLO ADMIT DATE: 07/16/18ACCOUNT NO: [id number] ROOM NO: [facility] AGE: 52 REPORT TYPE: CONSULTATION REPORT SEX: [...] MD WT: CON:GROXANNE/WES/NTSDD: 07/16/2018 22:38:51DT: 07/16/2018 23:22:12Conf#: [id number]/DID#: [id number] Authenticated by Iván Rao MD On 07/31/2018 03:00:53 PM at 1501 PATIENT NAME: FAM VALLECILLO :22:00G.[id number] for patient auarMJGOHTMRPVQHEJ4297-07-82I98:01:10 [facility]
--- NOTE | 2023-11-14 16:55 | EDPHYS ---
Physician Documentation [facility] Name: Chula Pierre Age: 58 yrs Sex: Female : 1965 Arrival Date: 11/14/2023 Time: 15:41 Bed 11 Private MD: ED Physician Elva Rico HPI: 11/13 16:55 This 58 yrs old Female presents to ER via Ambulatory with complaints of Fall gb1 Injury. 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 gb1 She has a left knee pain and mouth laceration on her tongue. She denies any seizure activity. Her friend who was there during the fall.. Historical: - Allergies: 15:49 No Known Allergies; as6 - PMHx: 15:49 None; as6 - PSHx: 15:49 None; as6 - Immunization history:: Client reports receiving the 2nd dose of the Covid vaccine. - Infectious Disease History:: Denies. - Social history:: Smoking status: Patient reports the use of cigarette tobacco products, smokes one-half pack cigarettes per day. Exam: 16:55 Constitutional: This is a well developed, well nourished patient who is awake, alert, gb1 and in no acute distress. Head/Face: Normocephalic, atraumatic. Eyes: Pupils equal round and reactive to light, extra-ocular motions intact. Lids and lashes normal. Conjunctiva and sclera are non-icteric and not injected. Cornea within normal limits. Periorbital areas with no swelling, redness, or edema. ENT: Nares patent. No nasal discharge, no septal abnormalities noted. Tympanic membranes are normal and external auditory canals are clear. Oropharynx with no redness, swelling, or masses, exudates, or evidence of obstruction, uvula midline. Mucous membranes moist. Patient does have a 1 cm tongue laceration on the right lateral frontal area of the tongue. There is no active bleeding. No foreign body present. Neck: Trachea midline, no thyromegaly or masses palpated, and no cervical lymphadenopathy. Supple, full range of motion without nuchal rigidity, or vertebral point tenderness. No Meningismus. Chest/axilla: Normal chest wall appearance and motion. Nontender with no deformity. No lesions are appreciated. Cardiovascular: Regular rate and rhythm with a normal S1 and S2. No gallops, murmurs, or rubs. Normal PMI, no JVD. No pulse deficits. Respiratory: Lungs have equal breath sounds bilaterally, clear to auscultation and percussion. No rales, rhonchi or wheezes noted. No increased work of breathing, no retractions or nasal flaring. Back: No spinal tenderness. No costovertebral tenderness. Full range of motion. Skin: Warm, dry with normal turgor. Normal color with no rashes, no lesions, and no evidence of cellulitis. MS/ Extremity: Pulses equal, no cyanosis. Neurovascular intact. Full, normal range of motion. Patient has tenderness and erythema with mild swelling to the left knee. She is able to range it without any difficulty or pain. There is no obvious deformity present. Neuro: Awake and alert, GCS 15, oriented to person, place, time, and situation. Cranial nerves II-XII grossly intact. Motor strength 5/5 in all extremities. Sensory grossly intact. Cerebellar exam normal. Normal gait. Vital Signs: 15:48 Pulse 84; Resp 18 S; Temp 97.6; Pulse Ox 94% on R/A; Weight 58.97 kg (R); Height 5 ft. as6 2 in. (R); 15:51 BP 84 / 63; as6 17:05 BP 102 / 64; Pulse 79; Resp 16; Pulse Ox 97% on R/A; me1 15:48 Body Mass Index 23.78 (58.97 kg, 157.48 cm) as6 MDM: 15:59 Patient medically screened. 1 17:08 Data reviewed: vital signs, nurses notes. gb1 17:08 ED course: 58-year-old female status post a fall with a left knee contusion/strain gb1 sprain here with also a mild tongue laceration that does not require any repair today. Patient refused x-ray of the left knee but I doubt any kind of dislocation or fracture as there is no deformity patient discharged home with return precautions and instructions to swish and swallow for pain upper tongue laceration.. Administered Medications: No medications were administered Disposition Summary: 11/14/23 16:54 Discharge Ordered Notes: Location: Home banner Condition: Stable gb1 Diagnosis - MOUTH LACERATION gb1 - Contusion of left knee gb1 Followup: gb1 - With: Private Physician - When: 2 - 3 days - Reason: Wound Recheck Discharge Instructions: - Discharge Summary Sheet gb1 - Fall Prevention in the Home, Adult gb1 - Mouth Laceration, [id number] gb1 Forms: - Medication Reconciliation Form gb1 - Antibiotic Education gb1 - Prescription Opioid Use gb1 - Patient Portal Instructions gb1 - Leadership Thank You Letter gb1 Signatures: Madi Albarado RN RN as6 TrishaElva MD MD gb1
--- NOTE | 2023-11-14 16:55 | ER ---
Nurse's Notes [facility] Name: Chula Pierre Age: 58 yrs Sex: Female : 1965 Arrival Date: 11/14/2023 Time: 15:41 Bed 11 Private MD: Diagnosis: MOUTH LACERATION;Contusion of left knee Presentation: 11/13 15:48 Chief complaint: Patient states: pt had a fall today. abrasions to her left leg and as6 laceration to her tongue. Coronavirus screen: At this time, the client does not indicate any symptoms associated with coronavirus-19. Ebola Screen: No symptoms or risks identified at this time. Initial Sepsis Screen: Does the patient meet any 2 criteria? No. Patient's initial sepsis screen is negative. Does the patient have a suspected source of infection? No. Patient's initial sepsis screen is negative. Risk Assessment: Do you want to hurt yourself or someone else? Patient reports no desire to harm self or others. Onset of symptoms was November 14, 2023. 15:48 Method Of Arrival: Ambulatory as6 15:48 Acuity: YASMANI 4 as6 Historical: - Allergies: 15:49 No Known Allergies; as6 - PMHx: 15:49 None; as6 - PSHx: 15:49 None; as6 - Immunization history:: Client reports receiving the 2nd dose of the Covid vaccine. - Infectious Disease History:: Denies. - Social history:: Smoking status: Patient reports the use of cigarette tobacco products, smokes one-half pack cigarettes per day. Screenin:11 [facility] ED Fall Risk Assessment (Adult) History of falling in the last 3 months, me1 including since admission Yes- single mechanical fall (1 pt) Confusion or Disorientation No (0 pts) Intoxicated or Sedated No (0 pts) Impaired Gait No (0 pts) Mobility Assist Device Used No (0 pt) Altered Elimination No (0 pt) Score/Fall Risk Level 0 - 2 = Low Risk Maintained a safe environment, Provided non-skid footwear, Hourly rounding (assess needs \T\ fall precautionary measures) done. Abuse screen: Denies threats or abuse. Nutritional screening: No deficits noted. Tuberculosis screening: No symptoms or risk factors identified. Assessment: 16:11 General: Appears uncomfortable, well groomed, well developed, well nourished, Behavior me1 is calm, cooperative, appropriate for age, Reports fall today. Abrasion noted to left knee and laceration to tongue. Pain: Complains of pain in left knee and tongue Pain does not radiate. Pain currently is 7 out of 10 on a pain scale. Quality of pain is described as sharp, Pain began suddenly, Is continuous. Neuro: Level of Consciousness is awake, alert, obeys commands, Oriented to person, place, time, situation, Appropriate for age. Cardiovascular: Capillary refill < 3 seconds Patient's skin is warm and dry. Respiratory: Airway is patent Respiratory effort is even, unlabored, Respiratory pattern is regular, symmetrical. GI: No signs and/or symptoms were reported involving the gastrointestinal system. : No signs and/or symptoms were reported regarding the genitourinary system. EENT: laceration to tongue. Derm: Skin is healthy with good turgor, Skin is pink, warm \T\ dry. Wound noted left knee Wound is abrasion laceration to tongue. Musculoskeletal: Reports pain in left knee. 16:11 Injury Description: fall. me1 Vital Signs: 15:48 Pulse 84; Resp 18 S; Temp 97.6; Pulse Ox 94% on R/A; Weight 58.97 kg (R); Height 5 ft. as6 2 in. (R); 15:51 BP 84 / 63; as6 17:05 BP 102 / 64; Pulse 79; Resp 16; Pulse Ox 97% on R/A; me1 15:48 Body Mass Index 23.78 (58.97 kg, 157.48 cm) as6 ED Course: 15:43 Patient arrived in ED. mr 15:45 Elva Rico MD is Attending Physician. gb1 15:49 Triage completed. as6 15:50 Arm band placed on. as6 16:05 Dorita Alvarez, TAYLOR is Primary Nurse. me1 16:11 Patient has correct armband on for positive identification. Bed in low position. Call me light in reach. Side rails up X 1. Provided Education on: POC. Verbalized understanding. . 16:11 No provider procedures requiring assistance completed. me1 17:05 IV discontinued, intact, bleeding controlled, No redness/swelling at site. Pressure me1 dressing applied. Administered Medications: No medications were administered Medication: 16:11 VIS not applicable for this client. me1 Outcome: 16:54 Discharge ordered by . gb1 17:05 Discharged to home ambulatory, with friend, me1 17:05 Condition: stable 17:05 Discharge instructions given to patient, friend, Instructed on discharge instructions, follow up and referral plans. Demonstrated understanding of instructions, follow-up care, 17:05 Patient left the ED. me1 Signatures: Linda Ku, Reg Reg mr Madi Albarado RN RN as6 Dorita Alvarez RN RN me1 Elva Rico MD MD gb1
[2023-11-14 17:34] VITALS: TEMP 97.6
[2023-11-14 18:05] VITALS: BP 102/64; O2SAT 97
== END 2023-11-14 17:05 | disposition home or self-care (01) ==
LOC: ER 15:41
DX: S01.512A Laceration without foreign body of oral cavity, initial encounter (principal); S80.02XA Contusion of left knee, initial encounter; W11.XXXA Fall on and from ladder, initial encounter; F17.210 Nicotine dependence, cigarettes, uncomplicated
CPT/HCPCS: 99283